=== PATIENT | male | born 1985 | race Caucasian/White ===

== ENCOUNTER → 2017-05-15 | Outpatient (REF) | payer BC ==
[2017-05-15 15:44] LABS: CHLAMYDIA DNA AMPLIFICATION NEGATIVE (NEGATIVE); GC DNA AMPLIFICATION NEGATIVE (NEGATIVE)
== END ==
LOC: M LAB REF 13:13
DX: Z11.3 Encounter for screening for infections with a predominantly sexual mode of transmission (principal)
CPT/HCPCS: 87591

== ENCOUNTER → 2017-05-21 | Outpatient (CLI) | payer BC ==
[2017-05-21 13:43] LABS: HIV 1&2 SCREEN CENTAUR NEGATIVE (NEGATIVE)
[2017-05-23 00:06] LABS: HSV-1 DNA Negative (Negative); HSV-2 DNA Negative (Negative)
== END ==
LOC: M LAB 11:36
DX: Z11.3 Encounter for screening for infections with a predominantly sexual mode of transmission (principal)
CPT/HCPCS: 87529

== ENCOUNTER 2019-03-21 14:51 | Emergency (ER) | payer BC ==
[~2019-03-21] VITALS: Ht 170.2 cm; Wt 83.6 kg
[2019-03-21] MEDS ORDERED: NS 1,000 ML IV ONE (15:30)
[2019-03-21 15:33] LABS: VENOUS BASE EXCESS -8.9 (-2.0-2.0); VENOUS HCO3 16.6 MEQ/L (23.0-27.0); VENOUS O2 SATURATION 97.8 % (60.0-80.0); VENOUS PARTIAL PRESSURE O2 105.8 mmHg (30.0-50.0); VENOUS PH 7.293 UNITS (7.330-7.430); VENOUS STANDARD HCO3 17.5 MEQ/L; VENOUS TOTAL CO2 17.6 MEQ/L (24.0-28.0)
[2019-03-21 15:44] LABS: BASO % 0.5 % (0.0-1.0); EOS % 0.2 % (0.0-3.0); HEMATOCRIT 45.5 % (42.0-52.0); HEMOGLOBIN 15.1 g/dl (13.5-17.5); LYMPH # 1.6 10^3/uL (1.5-5.0); LYMPH % 19.1 % (24.0-44.0); MEAN CORPUSCULAR HEMOGLOBIN 27.5 pg (27.0-33.0); MEAN CORPUSCULAR HGB CONC 33.2 g/dl (32.0-36.5); MEAN CORPUSCULAR VOLUME 82.9 fl (80.0-96.0); MONO # 0.6 10^3/uL (0.0-0.8); MONO % 7.2 % (0.0-5.0); NEUTROPHILS # 5.9 10^3/uL (1.5-8.5); NEUTROPHILS % 72.6 % (36.0-66.0); PLATELET COUNT, AUTOMATED 261 10^3/uL (150-450); RED BLOOD COUNT 5.49 10^6/uL (4.30-6.10); WHITE BLOOD COUNT 8.2 10^3/uL (4.0-10.0)
--- NOTE | 2019-03-21 15:49 | REPVR ---
PROCEDURE INFORMATION: Exam: CT Head Without Contrast Exam date and time: 03/21/2019 3:29 PM Age: 33 years old Clinical indication: Altered mental status/memory loss; Confusion or disorientation TECHNIQUE: Imaging protocol: Computed tomography of the head without contrast. Radiation optimization: All CT scans at this facility use at least one of these dose optimization techniques: automated exposure control; mA and/or kV adjustment per patient size (includes targeted exams where dose is matched to clinical indication); or iterative reconstruction. Other technique: STROKE PROTOCOL was implemented. COMPARISON: No relevant prior studies available. FINDINGS: Brain: There is edema involving the right posterior frontal, right parietal and right temporal lobes, with loss of the normal lo/white matter delineation there no associated hemorrhage. There is mass effect, with approximately 2 mm [id number] midline shift. Ventricles: Normal. No ventriculomegaly. Bones/joints: Unremarkable. No acute fracture. Sinuses: Visualized sinuses are unremarkable. No fluid levels. Mastoid air cells: Visualized mastoid air cells are well aerated. Soft tissues: Unremarkable. IMPRESSION: Diffuse edema corresponding to portions of the right middle cerebral artery distribution, potentially worrisome for infarction. Neoplasm is difficult to exclude. Contrast-enhanced MRI is recommended. ASSESSMENT: ASPECTS ([place] Stroke Program Early CT Score) is 6. These findings were discussed with IESHA COATS at 3:50 PM EST. Electronically signed by: Cordelia Oneal On 03/21/2019 15:50:51 PM
[2019-03-21 16:11] LABS: ACETAMINOPHEN LEVEL < 2.0 UG/ML (10.0-30.0); ALBUMIN 4.6 GM/DL (3.2-5.2); ALT/SGPT 26 U/L (12-78); BILIRUBIN,DIRECT 0.2 MG/DL (0.0-0.2); BILIRUBIN,TOTAL 0.7 MG/DL (0.2-1.0); BLOOD UREA NITROGEN 13 MG/DL (7-18); CALCIUM LEVEL 9.3 MG/DL (8.5-10.1); CARBON DIOXIDE LEVEL 19 MEQ/L (21-32); CHLORIDE LEVEL 105 MEQ/L (98-107); CK-MB VALUE MASS 1.8 NG/ML (<3.6); CPK CREATINE PHOSPHOKINASE 192 U/L (39-308); CREATININE FOR GFR 1.32 MG/DL (0.70-1.30); ETHYL ALCOHOL (ETHANOL) < 0.003 % (0.000-0.010); GLOMERULAR FILTRATION RATE > 60.0 (>60); GLUCOSE, FASTING 125 MG/DL (70-100); MB/CK RELATIVE INDEX 0.94 (< OR =4); SALICYLATE LEVEL < 1.7 MG/DL (5.0-30.0); SODIUM LEVEL 138 MEQ/L (136-145); TOTAL PROTEIN 7.7 GM/DL (6.4-8.2); TROPONIN I < 0.02 NG/ML (< 0.10)
[2019-03-21] MEDS ORDERED: PROHANCE 279.3MG/ML 15ML VIAL (A9576) As Ordered ONE (16:24)
[2019-03-21] MEDS ORDERED: levETIRAcetam INJection 1,000 MG in D5W 100 ML IV ONE (16:30)
[2019-03-21] MEDS ORDERED: dexameTHASONE 20 MG/5 ML VIAL (J1100) IV ONE (16:30)
--- NOTE | 2019-03-21 16:32 | REP ---
CHEST, SINGLE VIEW There is no evidence of acute infiltrate. No pleural effusion is seen. The heart is normal in size. The mediastinal silhouette is unremarkable. The visualized osseous structures are intact. IMPRESSION: No acute pulmonary disease. Electronically Signed by Mckay Blake MD 03/21/2019 05:30 P
--- NOTE | 2019-03-21 17:33 | REPVR ---
PROCEDURE INFORMATION: Exam: MR Head Without and With Contrast Exam date and time: 03/21/2019 5:02 PM Age: 33 years old Clinical indication: Abnormal findings; Abnormal radiologic findings of head/skull; Intracranial mass / space-occupying lesion; Syncope and collapse; Patient HX: R/O mass vs CVA, f/u to CT on pacs TECHNIQUE: Imaging protocol: MR of the head without and with intravenous contrast. Contrast material: PROHANCE; Contrast volume: 16 ml; Contrast route: 20G ANGIO; COMPARISON: CT Head without contrast 03/21/2019 3:27 PM FINDINGS: Brain: On the diffusion-weighted sequence there is 1 focal region of restricted diffusion in the region the right external capsule. There is mildly restricted diffusion in the right frontal and temporal lobes and within the left insular cortex and possibly within the hippocampi as well. There is diffuse edema left frontal and temporal lobes involving the white matter and overlying cortex. In the region of diffusion restriction there is enhancement with gadolinium administration. Due to the edema there is mass effect on the right lateral ventral gall without obstructive hydrocephalus. On the T2 weighted sequence there is also mild increased intensity in the left temporal cortex and edema within the white matter. Both hippocampi are are hyperintense on the FLAIR sequence. There is no acute intracranial hemorrhage. Ventricles: See Brain Finding. Bones/joints: Unremarkable. Soft tissues: Unremarkable. Sinuses: Normal as visualized. No acute sinusitis. Mastoid air cells: Normal as visualized. No mastoid effusion. Orbits: Unremarkable. 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 Other types of encephalitis are within the differential. A diffuse infiltrative tumor is a less likely etiology. Electronically signed by: Rachel Gore On 03/21/2019 17:35:10 PM
--- NOTE | 2019-03-21 17:35 | REPVR ---
PROCEDURE INFORMATION: Exam: MR Angiogram Head Without Contrast, Arteries Exam date and time: 03/21/2019 5:02 PM Age: 33 years old Clinical indication: Abnormal findings; Abnormal CT of the head; Syncope and collapse; Patient HX: R/O mass vs CVA; Additional info: Sz mass vs infarct TECHNIQUE: Imaging protocol: MR angiogram head without contrast. Exam focused on the arteries. 3D rendering: MIP and/or 3D reconstructed images were created by the technologist. COMPARISON: CT Head without contrast 03/21/2019 3:27 PM FINDINGS: Right internal carotid artery: Unremarkable. Intracranial segment is patent with no significant stenosis. No aneurysm. Right anterior cerebral artery: Unremarkable. No occlusion or significant stenosis. No aneurysm. Right middle cerebral artery: Unremarkable. No occlusion or significant stenosis. No aneurysm. Right posterior cerebral artery: Unremarkable. No occlusion or significant stenosis. No aneurysm. Right vertebral artery: Unremarkable. No occlusion or significant stenosis. No aneurysm. Left internal carotid artery: Unremarkable. Intracranial segment is patent with no significant stenosis. No aneurysm. Left anterior cerebral artery: Unremarkable. No occlusion or significant stenosis. No aneurysm. Left middle cerebral artery: Unremarkable. No occlusion or significant stenosis. No aneurysm. Left posterior cerebral artery: Unremarkable. No occlusion or significant stenosis. No aneurysm. Left vertebral artery: Unremarkable. No occlusion or significant stenosis. No aneurysm. Basilar artery: Unremarkable. No occlusion or significant stenosis. No aneurysm. IMPRESSION: No acute findings. Electronically signed by: Rachel Gore On 03/21/2019 17:36:27 PM
[2019-03-21 17:51] LABS: INR 1.17; PROTHROMBIN TIME 14.7 SECONDS (11.8-14.0)
[2019-03-21] MEDS ORDERED: ACYCLOVIR IV ONE (18:30)
[2019-03-21] MEDS ORDERED: NS IV ONE (18:30)
[2019-03-21 20:00] VITALS: BP 127/61
--- NOTE | 2019-03-22 21:28 | ECGEPIP ---
[facility] - ED Test Date: 2019-03-21 Pat Name: JULIO LABOY Department: Room: - Gender: Male Sterile Proc Tech: JUAN JOSE : 1985 Requested By: WILLIAM Rose Order Number: [id number] Reading MD: Mikey Reynolds Measurements Intervals [place] Rate: 108 P: ND: 0 QRS: 27 QRSD: 102 T: 19 QT: 318 QTc: 428 Interpretive Statements SINUS TACHYCARDIA NO PRIORS FOR COMPARISON Electronically Signed on 03-22-2019 21:28:13 EST by Mikey Reynolds
== END 2019-03-21 20:32 | disposition short-term general hospital (02) ==
LOC: M ED 14:51
DX: R00.0 Tachycardia, unspecified (principal); R56.9 Unspecified convulsions; G93.40 Encephalopathy, unspecified; R93.0 Abnormal findings on diagnostic imaging of skull and head, not elsewhere classified
CPT/HCPCS: 36415; 70450; 70544; 70553; 71045; 80048; 80076; 82550; 82553; 82803; 83605; 84443; 84484; 85025; 85610; 93005; 93041; 96374; 96375; 99285; A9576; G0480; J0133; J1100; J1953

== ENCOUNTER → 2019-04-08 | Outpatient (CLI) | payer BC ==
--- NOTE | 2019-04-08 12:00 | REP ---
Clinical: Brain lesion . Comparison: 03/21/2019 . Findings: The patient is status post right frontotemporal craniotomy. Underlying postsurgical changes include elements of pneumocephalus, edema, and small amount of suspected hemorrhage. There is evidence for associated mass effect with moderate compression to the right lateral ventricle and approximately 7.5 mm of contralateral midline shift. Remainder of the examination appears relatively normal. Impression: Postoperative changes. Electronically Signed by Lisandro Farmer MD 04/08/2019 11:52 A
== END ==
LOC: M RAD 11:33
PROVIDERS: ATTEND Physician Assistant Medical
DX: G93.6 Cerebral edema (principal); G93.89 Other specified disorders of brain; Z98.890 Other specified postprocedural states

== ENCOUNTER → 2019-05-01 | Outpatient (CLI) | payer BC ==
[~2019-05-01] MED LIST: DECA4TAB PO; KEPP10002 PO; PANT40TA3 PO
--- NOTE | 2019-05-02 08:09 | RADONC ---
RADIATION ONCOLOGY CONSULTATION NOTE: DATE: 05/01/2019 CHART NUMBER: [id number] DIAGNOSIS: High-grade astrocytoma STAGE: III ECOG PERFORMANCE STATUS: 0 Mr. Cuevas is a very pleasant 34-year-old white male with the diagnosis of a anoplastic astrocytoma who is presenting to us status post subtotal resection for consideration of postoperative radiation therapy in attempt to increase the likelihood of achieving local control. HISTORY OF PRESENT ILLNESS: The patient was in his usual state of health until late February 2019 when he had a seizure while at work. A CT scan of the head was done on 03/21/2019 and revealed diffuse edema corresponding to portions of the right middle cerebellar artery distribution. Neoplasm could not be excluded. An MRI of the brain was done the same day and revealed with that time what was thought to be herpes encephalitis. Apparently, the patient was transferred to [place] and on 04/03/2019 a subtotal resection was undertaken with pathology revealing a high-grade astrocytoma. 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 He has done well since surgery and is now presenting to us for discussion of postoperative radiation therapy. ALLERGIES: NO KNOWN DRUG ALLERGIES. PAST MEDICAL HISTORY: The patient's past medical history is noncontributory. He has been in generally excellent health. SOCIAL HISTORY: The patient reports that he did smoke approximately one pack of cigarettes per day for 15 years. He quit in April. He drinks alcohol socially. FAMILY HISTORY: The patient's family history is negative for brain tumors or other malignancies. REVIEW OF SYSTEMS: The patient's review of systems is basically the noncontributory. Since he has been on steroids. He has gained 10 pounds. He reports difficulty with sleeping. He has a lot of energy, of course this has improved with his Decadron taper. He is presently on 2 mg of Decadron a day. His review of systems is otherwise noncontributory. He denies nausea, vomiting, fevers, chills, night sweats, diplopia, headaches, anxiety or depression, anorexia, weight loss, visual disturbances, chest pain, urinary or bowel difficulties, bone pain, or neurological problems. PHYSICAL EXAMINATION: The patient is a well-developed, well-nourished 34-year-old white male in no acute distress. HEENT: Exam is normocephalic, atraumatic. Extraocular movements are intact. There is a well-healed surgical scar present over right frontotemporal region. There is no palpable cervical, supraclavicular, infraclavicular or axillary lymphadenopathy present. His lungs are clear to auscultation and percussion. His heart has regular rate and rhythm. His abdomen is benign with no splenomegaly, masses or tenderness. Skeletal examination reveals no tenderness to pressure percussion of the bony skeleton. Extremities: Reveal no clubbing, cyanosis or edema. Neurologic: Exam is grossly intact to sensory and motor. MEDICAL NECESSITY: IMRT/IGRT is clinically indicated for the highly conformal dose planning required. The target volume is in close proximity to critical structures, such as the normal brain, brainstem, eyes, optic nerves, spinal cord. The volume of interest must be covered with narrow margins to adequately protect immediately adjacent structures. The plan requires interpretation of complex testing such as CT localization. As noted above, special planning (IMRT) and localizing (IGRT) is required and essential to maximally protect sensitive normal tissue structures which cannot be accomplished using conventional 3-dimensional planning. ASSESSMENT: Clearly the patient is a candidate for this treatment and I have so informed him. I have discussed with the patient in detail the potential benefits as well as possible acute and chronic sequelae of external beam radiation therapy. We have discussed logistics of treatment planning, simulation and subsequent fractionated daily radiation treatments. I have scheduled the patient for the next available simulation slot and radiation treatments will begin subsequently. Thank you for allowing us to participate in the care of this very pleasant gentleman. I will keep you informed with any new developments as they occur. At the present time the patient is maintaining his 2 mg of Decadron a day which may help with any difficulties throughout the course of treatment. He will also be beginning his Temodar. cc: MD Milton Bassett MD Brittany Simone, DO Karen Williams, MD
== END ==
LOC: M ONCR 08:56
PROVIDERS: ATTEND Radiology Radiation Oncology
DX: C71.9 Malignant neoplasm of brain, unspecified (principal)

== ENCOUNTER → 2019-05-20 | Outpatient (RCR) | payer BC ==
--- NOTE | 2019-05-08 07:27 | RADONC ---
RADIATION ONCOLOGY DATE: 05/07/2019 CHART NUMBER: [id number] DIAGNOSIS: High-grade astrocytoma. STAGE: III. ECOG PERFORMANCE STATUS: 0 Mr. Cuevas returns today for simulation for his known high-grade astrocytoma. An immobilization device was constructed for day-to-day treatments. The immobilization device construction went without any problems or discomfort for the patient. Thereafter, 3 mm images were taken through the brain area for future contouring and treatment planning. The patient tolerated the imaging quite well with no significant untoward side effects or complaints. I was present during the entire simulation process. The patient now will undergo treatment planning via dosimetry and physics and will undergo initiation of his radiotherapy after completion of the treatment planning process.
--- NOTE | 2019-05-19 14:40 | RADONC ---
RADIATION ONCOLOGY PROGRESS NOTE DATE: 05/19/2019 CHART NUMBER: [id number] PROGRESS NOTE: Mr. Cuevas is presently at a dose of 540 cGy to his brain and overall had been tolerating treatments quite well. I spoke with the patient this morning and after jogging he reported that he was beginning to have all the symptoms he had prior to his original seizure. He reported some fuzziness of the brain as well as tingling in his extremities. The patient has been on a Decadron taper and has been down to 2 mg of Decadron a day. I have asked the patient to take a second 2 mg pill this morning bringing it to 4 mg this morning and then going to take another one tonight for 6 mg today. He will then be taking 2 mg b.i.d. from now on for 4 mg a day. We will continue to follow him and see if this helps. In the meantime, radiation will continue as scheduled.
[~2019-05-20] MED LIST changes: +DEXA4TA PO
== END ==
LOC: M ONCR 05-07 14:01
PROVIDERS: ATTEND Radiology Radiation Oncology
DX: C71.2 Malignant neoplasm of temporal lobe (principal)

== ENCOUNTER → 2019-05-21 | Outpatient (CLI) | payer BC ==
[~2019-05-21] MED LIST changes: +ISOVUE-370 76% 100ML VIAL (Q9967) As Ordered ONE
--- NOTE | 2019-05-21 07:59 | REPVR ---
PROCEDURE INFORMATION: Exam: CT Head Without Contrast Exam date and time: 05/21/2019 7:32 AM Age: 34 years old Clinical indication: Condition or disease; Primary brain cancer; Prior surgery; Surgery date: 1-6 months; Additional info: S/P brain tumor resection, lt side numbness TECHNIQUE: Imaging protocol: Computed tomography of the head without contrast. Radiation optimization: All CT scans at this facility use at least one of these dose optimization techniques: automated exposure control; mA and/or kV adjustment per patient size (includes targeted exams where dose is matched to clinical indication); or iterative reconstruction. COMPARISON: CT HEAD W/O CONTRAST - OUTSIDE PRIOR 04/08/2019 11:48 AM FINDINGS: Redemonstrated is a right temporal craniotomy defect. Small hyperdensity below the craniotomy defect is subdural space likely consistent with dural thickening. Trace amount of residual postsurgical subdural hemorrhage is considered less likely. There is a large area of encephalomalacia within the left temporal lobe with abnormal low attenuation in the more superior right temporal lobe extending into the frontal lobe which may represent postsurgical change versus vasogenic edema. No other intracranial hemorrhage. No significant mass effect or midline shift. Ventricles are nondilated for age. No other focal parenchymal abnormalities. No other calvarial abnormalities. IMPRESSION: Postsurgical changes with right temporal craniotomy and encephalomalacia changes in the right temporal lobe. Mildly decreased attenuation in the right frontal temporal region may represent postsurgical change versus vasogenic edema. This is similar to previous examination. No definite acute intracranial hemorrhage. No mass effect or midline shift. Electronically signed by: Trenton Fowler On 05/21/2019 07:59:34 AM
--- NOTE | 2019-05-21 08:01 | REPVR ---
PROCEDURE INFORMATION: Exam: CT Angiography Head With Contrast Exam date and time: 05/21/2019 7:32 AM Age: 34 years old Clinical indication: Condition or disease; Cancer; Other: Brain; Prior surgery; Surgery date: 1-6 months; Additional info: S/P brain tumor resection, lt side numbness TECHNIQUE: Imaging protocol: Computed tomography angiography of the head with intravenous contrast. 3D rendering: MIP and/or 3D reconstructed images were created by the technologist. Radiation optimization: All CT scans at this facility use at least one of these dose optimization techniques: automated exposure control; mA and/or kV adjustment per patient size (includes targeted exams where dose is matched to clinical indication); or iterative reconstruction. Contrast material: ISOVUE 370; Contrast volume: 75 ml; Contrast route: IV; COMPARISON: CT HEAD W/O CONTRAST - OUTSIDE PRIOR 04/08/2019 11:48 AM FINDINGS: No significant stenosis, aneurysmal dilatation or large vessel occlusion within the anterior or posterior intracranial arterial circulation. Postsurgical changes over the right frontal temporal region. Please see dedicated CT brain reported separately. IMPRESSION: No significant stenosis, aneurysmal dilatation or large vessel occlusion within the anterior or posterior intracranial arterial circulation. Electronically signed by: Trenton Fowler On 05/21/2019 08:01:27 AM
== END ==
LOC: M RAD 07:15
PROVIDERS: ATTEND Physician Assistant Medical
DX: C71.9 Malignant neoplasm of brain, unspecified (principal); R20.0 Anesthesia of skin; Z98.890 Other specified postprocedural states
CPT/HCPCS: 70450; 70496; Q9967

== ENCOUNTER → 2019-05-26 | Outpatient (CLI) | payer BC ==
[~2019-05-26] MED LIST changes: -ISOVUE-370 76% 100ML VIAL (Q9967) As Ordered ONE
== END ==
LOC: M ONCM 13:40
PROVIDERS: ATTEND Internal Medicine Medical Oncology
DX: C71.9 Malignant neoplasm of brain, unspecified (principal)

== ENCOUNTER → 2019-05-26 | Outpatient (REF) | payer BC ==
[2019-05-26 16:17] LABS: BLOOD UREA NITROGEN 18 MG/DL (7-18); CALCIUM LEVEL 9.2 MG/DL (8.5-10.1); CARBON DIOXIDE LEVEL 27 MEQ/L (21-32); CHLORIDE LEVEL 107 MEQ/L (98-107); CREATININE FOR GFR 0.85 MG/DL (0.70-1.30); GLOMERULAR FILTRATION RATE > 60.0 (>60); GLUCOSE, FASTING 96 MG/DL (70-100); POTASSIUM SERUM 3.9 MEQ/L (3.5-5.1); SODIUM LEVEL 138 MEQ/L (136-145)
== END ==
LOC: M LAB REF 14:56
PROVIDERS: ATTEND Internal Medicine Medical Oncology
DX: C71.9 Malignant neoplasm of brain, unspecified (principal)

== ENCOUNTER → 2019-06-05 | Outpatient (REF) | payer BC ==
[2019-06-05 15:20] LABS: BASO % 0.1 % (0.0-1.0); EOS % 0.1 % (0.0-3.0); HEMATOCRIT 44.9 % (42.0-52.0); HEMOGLOBIN 15.3 g/dl (13.5-17.5); LYMPH # 0.7 10^3/uL (1.5-5.0); LYMPH % 7.2 % (24.0-44.0); MEAN CORPUSCULAR HEMOGLOBIN 29.9 pg (27.0-33.0); MEAN CORPUSCULAR HGB CONC 34.1 g/dl (32.0-36.5); MEAN CORPUSCULAR VOLUME 87.9 fl (80.0-96.0); MONO # 0.6 10^3/uL (0.0-0.8); MONO % 6.2 % (0.0-5.0); NEUTROPHILS # 7.8 10^3/uL (1.5-8.5); NEUTROPHILS % 85.7 % (36.0-66.0); PLATELET COUNT, AUTOMATED 250 10^3/uL (150-450); RED BLOOD COUNT 5.11 10^6/uL (4.30-6.10); WHITE BLOOD COUNT 9.1 10^3/uL (4.0-10.0)
[2019-06-05 15:38] LABS: ALBUMIN 3.6 GM/DL (3.2-5.2); ALT/SGPT 30 U/L (12-78); BILIRUBIN,TOTAL 0.4 MG/DL (0.2-1.0); BLOOD UREA NITROGEN 17 MG/DL (7-18); CALCIUM LEVEL 9.3 MG/DL (8.5-10.1); CARBON DIOXIDE LEVEL 28 MEQ/L (21-32); CHLORIDE LEVEL 105 MEQ/L (98-107); CREATININE FOR GFR 0.85 MG/DL (0.70-1.30); GLOMERULAR FILTRATION RATE > 60.0 (>60); GLUCOSE, FASTING 96 MG/DL (70-100); SODIUM LEVEL 136 MEQ/L (136-145)
== END ==
LOC: M LAB REF 14:49
DX: C71.9 Malignant neoplasm of brain, unspecified (principal)

== ENCOUNTER → 2019-06-12 | Outpatient (CLI) | payer BC ==
[2019-06-12 14:17] LABS: BASO % 0.2 % (0.0-1.0); EOS % 0.1 % (0.0-3.0); HEMATOCRIT 45.1 % (42.0-52.0); HEMOGLOBIN 16.1 g/dl (13.5-17.5); LYMPH # 0.5 10^3/uL (1.5-5.0); LYMPH % 5.6 % (24.0-44.0); MEAN CORPUSCULAR HEMOGLOBIN 30.7 pg (27.0-33.0); MEAN CORPUSCULAR HGB CONC 35.7 g/dl (32.0-36.5); MEAN CORPUSCULAR VOLUME 86.1 fl (80.0-96.0); MONO # 0.3 10^3/uL (0.0-0.8); MONO % 3.2 % (0.0-5.0); NEUTROPHILS # 7.5 10^3/uL (1.5-8.5); NEUTROPHILS % 89.7 % (36.0-66.0); PLATELET COUNT, AUTOMATED 258 10^3/uL (150-450); RED BLOOD COUNT 5.24 10^6/uL (4.30-6.10); WHITE BLOOD COUNT 8.3 10^3/uL (4.0-10.0)
[2019-06-12 14:23] LABS: BLOOD UREA NITROGEN 20 MG/DL (7-18); CALCIUM LEVEL 9.1 MG/DL (8.5-10.1); CARBON DIOXIDE LEVEL 26 MEQ/L (21-32); CHLORIDE LEVEL 104 MEQ/L (98-107); GLOMERULAR FILTRATION RATE > 60.0 (>60); GLUCOSE, FASTING 107 MG/DL (70-100); POTASSIUM SERUM 3.6 MEQ/L (3.5-5.1); SODIUM LEVEL 135 MEQ/L (136-145)
== END ==
LOC: M LAB 13:38
PROVIDERS: ATTEND Internal Medicine Medical Oncology
DX: C71.9 Malignant neoplasm of brain, unspecified (principal)

== ENCOUNTER → 2019-06-19 | Outpatient (CLI) | payer BC ==
[2019-06-19 14:07] LABS: BASO % 0.3 % (0.0-1.0); EOS % 0.3 % (0.0-3.0); HEMATOCRIT 45.6 % (42.0-52.0); HEMOGLOBIN 15.8 g/dl (13.5-17.5); LYMPH # 0.6 10^3/uL (1.5-5.0); LYMPH % 7.1 % (24.0-44.0); MEAN CORPUSCULAR HEMOGLOBIN 30.1 pg (27.0-33.0); MEAN CORPUSCULAR HGB CONC 34.6 g/dl (32.0-36.5); MEAN CORPUSCULAR VOLUME 86.9 fl (80.0-96.0); MONO # 0.3 10^3/uL (0.0-0.8); MONO % 4.3 % (0.0-5.0); NEUTROPHILS # 6.8 10^3/uL (1.5-8.5); NEUTROPHILS % 87.5 % (36.0-66.0); PLATELET COUNT, AUTOMATED 259 10^3/uL (150-450); RED BLOOD COUNT 5.25 10^6/uL (4.30-6.10); WHITE BLOOD COUNT 7.7 10^3/uL (4.0-10.0)
[2019-06-19 14:30] LABS: BLOOD UREA NITROGEN 23 MG/DL (7-18); CARBON DIOXIDE LEVEL 25 MEQ/L (21-32); CHLORIDE LEVEL 105 MEQ/L (98-107); CREATININE FOR GFR 0.87 MG/DL (0.70-1.30); GLOMERULAR FILTRATION RATE > 60.0 (>60); GLUCOSE, FASTING 123 MG/DL (70-100); POTASSIUM SERUM 3.5 MEQ/L (3.5-5.1); SODIUM LEVEL 136 MEQ/L (136-145)
== END ==
LOC: M LAB 13:38
PROVIDERS: ATTEND Internal Medicine Medical Oncology
DX: C71.9 Malignant neoplasm of brain, unspecified (principal)

== ENCOUNTER → 2019-06-19 | Outpatient (RCR) | payer BC ==
--- NOTE | 2019-05-27 08:36 | RADONC ---
RADIATION ONCOLOGY PROGRESS NOTE DATE: 05/26/2019 CHART #: [id number] Mr. Cuevas is presently at a dose of 1440 cGy to his brain tumor and is tolerating treatments quite well at this point with no complaints related to his radiation therapy. He had called his neurosurgeon who increased his Keppra. He is having no further seizure like or neurological issues. REVIEW OF SYSTEMS: The patient's review of systems is noncontributory. Denies nausea, vomiting, fevers, chills, night sweats, diplopia, headaches, anxiety or depression, anorexia, weight loss, visual disturbances, chest pain, urinary or bowel difficulties, bone pain, or neurological problems. PHYSICAL EXAMINATION: The patient's skin is in good condition with no evidence of moist or dry desquamation. The remainder of his physical exam remains unchanged. Mr. Cuevas is tolerating treatments quite well and radiation will continue as scheduled.
--- NOTE | 2019-06-02 15:05 | RADONC ---
RADIATION ONCOLOGY PROGRESS NOTE DATE: 06/02/2019 CHART NUMBER: [id number] PROGRESS NOTE: Mr. Cuevas is presently at a dose of 2340 cGy to his brain and is tolerating treatments quite well at this point with no significant difficulties related to his radiation therapy. He is having no headaches or nausea. REVIEW OF SYSTEMS: The patient's review of systems is noncontributory. Denies nausea, vomiting, fevers, chills, night sweats, diplopia, headaches, anxiety or depression, anorexia, weight loss, visual disturbances, chest pain, urinary or bowel difficulties, bone pain, or neurological problems. PHYSICAL EXAMINATION: The patient's skin is in good condition with no evidence of moist or dry desquamation. The remainder of his physical exam remains unchanged. Mr. Cuevas is tolerating treatments quite well and radiation will continue as scheduled.
--- NOTE | 2019-06-10 06:27 | RADONC ---
RADIATION ONCOLOGY PROGRESS NOTE DATE: 06/09/2019 CHART # [id number] Mr. Cuevas is presently at a dose of 3060 cGy to his brain tumor and is tolerating treatments quite well at this point with no significant difficulties related to his radiation therapy. He is having no significant headaches or problems. REVIEW OF SYSTEMS: The patient's review of systems is basically noncontributory. Denies nausea, vomiting, fevers, chills, night sweats, diplopia, headaches, anxiety or depression, anorexia, weight loss, visual disturbances, chest pain, urinary or bowel difficulties, bone pain, or neurological problems. PHYSICAL EXAMINATION: The patient's skin is in good condition with no evidence of moist or dry desquamation. The remainder of the physical exam remains unchanged. Mr. Cuevas is tolerating treatments quite well and radiation will continue as scheduled.
--- NOTE | 2019-06-17 08:56 | RADONC ---
RADIATION ONCOLOGY PROGRESS NOTE DATE OF SERVICE: 06/16/2019 CHART NUMBER: [id number]. PROGRESS NOTE: Mr. Cuevas is presently at a dose of 4140 cGy to his brain and is tolerating treatments quite well at this point with no complaints related to his radiation therapy. He is having no urinary or bowel difficulties and no bone pain. REVIEW OF SYSTEMS: The patient's review of systems is noncontributory. He denies nausea, vomiting, fevers, chills, night sweats, diplopia, headaches, anxiety or depression, anorexia, weight loss, visual disturbances, chest pain, urinary or bowel difficulties, bone pain, or neurological problems. PHYSICAL EXAMINATION: The patient's skin is in good condition with no evidence of radiation change present. There is no moist or dry desquamation. The remainder of his physical exam remains unchanged. Mr. Cuevas is tolerating treatments quite well, and radiation will continue as scheduled.
== END ==
LOC: M ONCR 05-21 14:04
PROVIDERS: ATTEND Radiology Radiation Oncology
DX: C71.2 Malignant neoplasm of temporal lobe (principal)

== ENCOUNTER → 2019-06-26 | Outpatient (CLI) | payer BC ==
[2019-06-26 14:02] LABS: BASO % 0.1 % (0.0-1.0); EOS % 0.1 % (0.0-3.0); HEMATOCRIT 45.2 % (42.0-52.0); HEMOGLOBIN 15.4 g/dl (13.5-17.5); LYMPH # 0.4 10^3/uL (1.5-5.0); LYMPH % 5.1 % (24.0-44.0); MEAN CORPUSCULAR HEMOGLOBIN 29.6 pg (27.0-33.0); MEAN CORPUSCULAR HGB CONC 34.1 g/dl (32.0-36.5); MEAN CORPUSCULAR VOLUME 86.9 fl (80.0-96.0); MONO # 0.4 10^3/uL (0.0-0.8); MONO % 4.4 % (0.0-5.0); NEUTROPHILS # 7.3 10^3/uL (1.5-8.5); NEUTROPHILS % 89.4 % (36.0-66.0); PLATELET COUNT, AUTOMATED 259 10^3/uL (150-450); WHITE BLOOD COUNT 8.2 10^3/uL (4.0-10.0)
[2019-06-26 14:28] LABS: BLOOD UREA NITROGEN 19 MG/DL (7-18); CALCIUM LEVEL 9.1 MG/DL (8.5-10.1); CARBON DIOXIDE LEVEL 24 MEQ/L (21-32); CHLORIDE LEVEL 107 MEQ/L (98-107); CREATININE FOR GFR 0.87 MG/DL (0.70-1.30); GLOMERULAR FILTRATION RATE > 60.0 (>60); GLUCOSE, FASTING 136 MG/DL (70-100); POTASSIUM SERUM 3.6 MEQ/L (3.5-5.1); SODIUM LEVEL 139 MEQ/L (136-145)
== END ==
LOC: M LAB 13:24
PROVIDERS: ATTEND Internal Medicine Medical Oncology
DX: C71.9 Malignant neoplasm of brain, unspecified (principal)

== ENCOUNTER 2019-06-30 13:45 | Outpatient (RCR) | payer BC ==
--- NOTE | 2019-06-26 09:18 | RADONC ---
RADIATION ONCOLOGY PROGRESS NOTE DATE: 06/23/2019 CHART NUMBER: [id number] PROGRESS NOTE: Mr. Cuevas is presently at a dose of 5040 cGy to his brain tumor and is tolerating treatments quite well at this point with no complaints related to his radiation therapy. He is having no difficulties or seizure-like activity. REVIEW OF SYSTEMS: The patient's review of systems is noncontributory. Denies nausea, vomiting, fevers, chills, night sweats, diplopia, headaches, anxiety or depression, anorexia, weight loss, visual disturbances, chest pain, urinary or bowel difficulties, bone pain, or neurological problems. PHYSICAL EXAMINATION: The patient's skin is in good condition with some radiation tanning present. The remainder of his physical exam is unchanged. Mr. Cuevas is tolerating treatments quite well and radiation will continue as scheduled.
--- NOTE | 2019-07-02 06:08 | RADONC ---
RADIATION ONCOLOGY TREATMENT SUMMARY DATE: 06/30/2019 CHART #: [id number] DIAGNOSIS: High grade astrocytoma. STAGE: Grade 3. ECOG PERFORMANCE STATUS: 0. TREATMENT SUMMARY: Mr. Cuevas is a very pleasant 34-year-old white male with the diagnosis of an anaplastic astrocytoma who presents to us status post sub total resection for consideration of postoperative radiation therapy via IMRT/IGRT in order to achieve local control. We treated the patient to his brain tumor for a total dose of 5940 cGy delivered in 33 fractions of 180 cGy each over 46 elapsed days from 05/15/2019 through 06/30/2019. The patient's brain was treated on a linear accelerator utilizing a 6 MV photon beam via IMRT/IGRT. Mr. Cuevas tolerated his treatments quite well and was able complete therapy as prescribed without interruption. I have scheduled the patient to see me again in 1 month for further followup. He will also continue to be followed by his other physicians as well. His Decadron taper schedule and Keppra are being organized and managed by his neurosurgeon. cc: MD Milton Bassett MD Brittany Simone, DO Karen Williams, MD
== END 2019-07-20 ==
LOC: M ONCR 13:45
PROVIDERS: ATTEND Radiology Radiation Oncology
DX: C71.2 Malignant neoplasm of temporal lobe (principal)

== ENCOUNTER → 2019-07-04 | Outpatient (CLI) | payer BC ==
[2019-07-04 13:49] LABS: BASO % 0.2 % (0.0-1.0); EOS % 0.1 % (0.0-3.0); HEMATOCRIT 46.5 % (42.0-52.0); HEMOGLOBIN 15.7 g/dl (13.5-17.5); LYMPH # 0.5 10^3/uL (1.5-5.0); LYMPH % 5.6 % (24.0-44.0); MEAN CORPUSCULAR HEMOGLOBIN 29.7 pg (27.0-33.0); MEAN CORPUSCULAR HGB CONC 33.8 g/dl (32.0-36.5); MEAN CORPUSCULAR VOLUME 88.1 fl (80.0-96.0); MONO % 4.3 % (0.0-5.0); NEUTROPHILS # 7.8 10^3/uL (1.5-8.5); NEUTROPHILS % 88.8 % (36.0-66.0); PLATELET COUNT, AUTOMATED 262 10^3/uL (150-450); RED BLOOD COUNT 5.28 10^6/uL (4.30-6.10); WHITE BLOOD COUNT 8.8 10^3/uL (4.0-10.0)
[2019-07-04 13:50] LABS: MONO # 0.4 10^3/uL (0.0-0.8)
[2019-07-04 14:11] LABS: BLOOD UREA NITROGEN 19 MG/DL (7-18); CALCIUM LEVEL 8.9 MG/DL (8.5-10.1); CARBON DIOXIDE LEVEL 30 MEQ/L (21-32); CHLORIDE LEVEL 105 MEQ/L (98-107); CREATININE FOR GFR 0.84 MG/DL (0.70-1.30); GLOMERULAR FILTRATION RATE > 60.0 (>60); GLUCOSE, FASTING 103 MG/DL (70-100); POTASSIUM SERUM 4.1 MEQ/L (3.5-5.1); SODIUM LEVEL 141 MEQ/L (136-145)
== END ==
LOC: M LAB 13:02
PROVIDERS: ATTEND Internal Medicine Medical Oncology
DX: C71.9 Malignant neoplasm of brain, unspecified (principal)

== ENCOUNTER → 2019-07-15 | Outpatient (CLI) | payer BC ==
[2019-07-15 13:53] LABS: BASO % 0.2 % (0.0-1.0); HEMATOCRIT 42.6 % (42.0-52.0); LYMPH # 0.5 10^3/uL (1.5-5.0); LYMPH % 5.9 % (24.0-44.0); MEAN CORPUSCULAR HEMOGLOBIN 30.2 pg (27.0-33.0); MEAN CORPUSCULAR HGB CONC 35.2 g/dl (32.0-36.5); MEAN CORPUSCULAR VOLUME 85.7 fl (80.0-96.0); MONO # 0.4 10^3/uL (0.0-0.8); MONO % 4.3 % (0.0-5.0); NEUTROPHILS # 7.5 10^3/uL (1.5-8.5); NEUTROPHILS % 88.8 % (36.0-66.0); PLATELET COUNT, AUTOMATED 214 10^3/uL (150-450); RED BLOOD COUNT 4.97 10^6/uL (4.30-6.10); WHITE BLOOD COUNT 8.4 10^3/uL (4.0-10.0)
[2019-07-15 14:13] LABS: BLOOD UREA NITROGEN 20 MG/DL (7-18); CALCIUM LEVEL 8.8 MG/DL (8.5-10.1); CARBON DIOXIDE LEVEL 25 MEQ/L (21-32); CHLORIDE LEVEL 108 MEQ/L (98-107); CREATININE FOR GFR 0.81 MG/DL (0.70-1.30); GLOMERULAR FILTRATION RATE > 60.0 (>60); GLUCOSE, FASTING 106 MG/DL (70-100); POTASSIUM SERUM 3.7 MEQ/L (3.5-5.1); SODIUM LEVEL 140 MEQ/L (136-145)
== END ==
LOC: M LAB 13:01
PROVIDERS: ATTEND Internal Medicine Medical Oncology
DX: C71.9 Malignant neoplasm of brain, unspecified (principal)

== ENCOUNTER → 2019-07-30 | Outpatient (CLI) | payer BC ==
[2019-07-30 12:12] LABS: BASO % 0.2 % (0.0-1.0); EOS % 0.2 % (0.0-3.0); HEMATOCRIT 44.2 % (42.0-52.0); HEMOGLOBIN 15.7 g/dl (13.5-17.5); LYMPH # 0.7 10^3/uL (1.5-5.0); LYMPH % 6.6 % (24.0-44.0); MEAN CORPUSCULAR HEMOGLOBIN 30.7 pg (27.0-33.0); MEAN CORPUSCULAR HGB CONC 35.5 g/dl (32.0-36.5); MEAN CORPUSCULAR VOLUME 86.5 fl (80.0-96.0); MONO # 0.5 10^3/uL (0.0-0.8); MONO % 5.3 % (0.0-5.0); NEUTROPHILS # 8.7 10^3/uL (1.5-8.5); NEUTROPHILS % 86.2 % (36.0-66.0); PLATELET COUNT, AUTOMATED 185 10^3/uL (150-450); RED BLOOD COUNT 5.11 10^6/uL (4.30-6.10); WHITE BLOOD COUNT 10.1 10^3/uL (4.0-10.0)
[2019-07-30 12:29] LABS: BLOOD UREA NITROGEN 15 MG/DL (7-18); CALCIUM LEVEL 9.2 MG/DL (8.5-10.1); CARBON DIOXIDE LEVEL 26 MEQ/L (21-32); CHLORIDE LEVEL 105 MEQ/L (98-107); CREATININE FOR GFR 0.87 MG/DL (0.70-1.30); GLOMERULAR FILTRATION RATE > 60.0 (>60); GLUCOSE, FASTING 101 MG/DL (70-100); POTASSIUM SERUM 3.8 MEQ/L (3.5-5.1); SODIUM LEVEL 136 MEQ/L (136-145)
== END ==
LOC: M LAB 11:41
PROVIDERS: ATTEND Internal Medicine Medical Oncology
DX: C71.9 Malignant neoplasm of brain, unspecified (principal)

== ENCOUNTER → 2019-07-30 | Outpatient (CLI) | payer BC ==
--- NOTE | 2019-08-05 13:04 | RADONC ---
RADIATION ONCOLOGY FOLLOWUP NOTE DATE OF SERVICE: 07/30/2019 This is a telemedicine visit. The patient was informed of the risks including security breech, technological failure, inability to perform a comprehensive physical exam which could delay or prevent an accurate diagnosis, and potential complications from treatment decisions rendered over a telemedicine platform. The patient understands and consented to the use of telehealth services. Phone only. CHART NUMBER: [id number]. DIAGNOSIS: High-grade astrocytoma/glioblastoma. GRADE: 3/4. ECOG PERFORMANCE STATUS: 0. FOLLOWUP NOTE: Mr. Cuevas is a very pleasant 34-year-old white male with the diagnosis of a glioblastoma multiforme/anaplastic astrocytoma, who is presenting to us today for routine followup visit 1 month post completion of external beam radiation therapy. The patient reports that he was initially diagnosed as a high-grade astrocytoma grade 3 but now says his physicians in [place] are telling him it was a glioblastoma. Nonetheless, we treated him to a dose 5940 cGy and covered all bases. The patient is presenting reporting that he is doing quite well. He is having no headaches or other problems. He has no seizure-like activity. He is presently receiving systemic therapy with Dr. Milton Javier MD. PHYSICAL EXAMINATION: Was deferred at this time due to COVID precautions. This is a telephone consultation. ASSESSMENT: Mr. Cuevas is doing quite well at this point. He is continuing with his systemic therapy. I have scheduled him for a followup in our office in 3 months' time, and he has been informed that I will be retiring and he will be seeing our new doctor, Dr. Jeancarlos Kohler. In the meantime, he will continue his close followup and management with his other physicians. cc: MD Milton Bassett MD Brittany Simone, DO Karen Williams, MD
== END ==
LOC: M ONCR 13:36
PROVIDERS: ATTEND Radiology Radiation Oncology
DX: C71.2 Malignant neoplasm of temporal lobe (principal)

== ENCOUNTER → 2019-08-06 | Outpatient (CLI) | payer BC ==
[~2019-08-06] MED LIST changes: +BACT800T5 PO; +DEXA2TA PO; +KEPP1TAB PO; +LAMI25TA PO; +MELA3TAB49 PO; +ONDA8TAB8 PO; +PANT40TA29 PO; -PANT40TA3 PO; +TEMO100C17 PO
[2019-08-06 14:58] LABS: BASO % 0.1 % (0.0-1.0); EOS % 0.1 % (0.0-3.0); HEMATOCRIT 43.1 % (42.0-52.0); HEMOGLOBIN 14.7 g/dl (13.5-17.5); LYMPH # 0.7 10^3/uL (1.5-5.0); LYMPH % 6.6 % (24.0-44.0); MEAN CORPUSCULAR HEMOGLOBIN 29.8 pg (27.0-33.0); MEAN CORPUSCULAR HGB CONC 34.1 g/dl (32.0-36.5); MEAN CORPUSCULAR VOLUME 87.4 fl (80.0-96.0); MONO # 0.6 10^3/uL (0.0-0.8); MONO % 5.9 % (0.0-5.0); NEUTROPHILS # 8.6 10^3/uL (1.5-8.5); NEUTROPHILS % 86.4 % (36.0-66.0); PLATELET COUNT, AUTOMATED 223 10^3/uL (150-450); RED BLOOD COUNT 4.93 10^6/uL (4.30-6.10); WHITE BLOOD COUNT 9.9 10^3/uL (4.0-10.0)
[2019-08-06 15:23] LABS: BLOOD UREA NITROGEN 17 MG/DL (7-18); CALCIUM LEVEL 8.6 MG/DL (8.5-10.1); CARBON DIOXIDE LEVEL 26 MEQ/L (21-32); CHLORIDE LEVEL 106 MEQ/L (98-107); CREATININE FOR GFR 0.89 MG/DL (0.70-1.30); GLOMERULAR FILTRATION RATE > 60.0 (>60); GLUCOSE, FASTING 111 MG/DL (70-100); POTASSIUM SERUM 3.9 MEQ/L (3.5-5.1); SODIUM LEVEL 139 MEQ/L (136-145)
== END ==
LOC: M LAB 14:26
PROVIDERS: ATTEND Internal Medicine Medical Oncology
DX: C71.9 Malignant neoplasm of brain, unspecified (principal)

== ENCOUNTER → 2019-08-11 | Outpatient (CLI) | payer BC ==
[~2019-08-11] MED LIST changes: -BACT800T5 PO; -DEXA2TA PO; -KEPP1TAB PO; -LAMI25TA PO; -MELA3TAB49 PO; -ONDA8TAB8 PO; -PANT40TA29 PO; +PANT40TA3 PO; -TEMO100C17 PO
[2019-08-11 07:01] LABS: BASO % 0.6 % (0.0-1.0); EOS # 0.1 10^3/uL (0.0-0.5); HEMATOCRIT 42.5 % (42.0-52.0); HEMOGLOBIN 14.4 g/dl (13.5-17.5); LYMPH # 1.7 10^3/uL (1.5-5.0); LYMPH % 24.8 % (24.0-44.0); MEAN CORPUSCULAR HEMOGLOBIN 29.6 pg (27.0-33.0); MEAN CORPUSCULAR HGB CONC 33.9 g/dl (32.0-36.5); MEAN CORPUSCULAR VOLUME 87.4 fl (80.0-96.0); MONO # 0.8 10^3/uL (0.0-0.8); MONO % 11.3 % (0.0-5.0); NEUTROPHILS # 4.1 10^3/uL (1.5-8.5); NEUTROPHILS % 61.4 % (36.0-66.0); PLATELET COUNT, AUTOMATED 195 10^3/uL (150-450); RED BLOOD COUNT 4.86 10^6/uL (4.30-6.10); WHITE BLOOD COUNT 6.7 10^3/uL (4.0-10.0)
[2019-08-11 07:20] LABS: BLOOD UREA NITROGEN 14 MG/DL (7-18); CALCIUM LEVEL 8.8 MG/DL (8.5-10.1); CARBON DIOXIDE LEVEL 28 MEQ/L (21-32); CHLORIDE LEVEL 105 MEQ/L (98-107); CREATININE FOR GFR 0.96 MG/DL (0.70-1.30); GLOMERULAR FILTRATION RATE > 60.0 (>60); GLUCOSE, FASTING 87 MG/DL (70-100); POTASSIUM SERUM 3.8 MEQ/L (3.5-5.1); SODIUM LEVEL 139 MEQ/L (136-145)
== END ==
LOC: M LAB 06:34
PROVIDERS: ATTEND Internal Medicine Medical Oncology
DX: C71.9 Malignant neoplasm of brain, unspecified (principal)

== ENCOUNTER → 2019-09-03 | Outpatient (CLI) | payer BC ==
[~2019-09-03] MED LIST changes: +BACT800T5 PO; +DEXA2TA PO; +KEPP1TAB PO; +LAMI25TA PO; +MELA3TAB49 PO; +ONDA8TAB8 PO; +PANT40TA29 PO; -PANT40TA3 PO; +TEMO1CAP PO
[2019-09-03 08:41] LABS: BASO % 0.6 % (0.0-1.0); EOS # 0.1 10^3/uL (0.0-0.5); EOS % 0.9 % (0.0-3.0); HEMATOCRIT 39.6 % (42.0-52.0); HEMOGLOBIN 13.8 g/dl (13.5-17.5); LYMPH # 1.2 10^3/uL (1.5-5.0); LYMPH % 17.5 % (24.0-44.0); MEAN CORPUSCULAR HEMOGLOBIN 30.3 pg (27.0-33.0); MEAN CORPUSCULAR HGB CONC 34.8 g/dl (32.0-36.5); MONO # 0.6 10^3/uL (0.0-0.8); NEUTROPHILS % 71.4 % (36.0-66.0); PLATELET COUNT, AUTOMATED 222 10^3/uL (150-450); RED BLOOD COUNT 4.55 10^6/uL (4.30-6.10)
[2019-09-03 09:05] LABS: BLOOD UREA NITROGEN 14 MG/DL (7-18); CALCIUM LEVEL 9.3 MG/DL (8.5-10.1); CARBON DIOXIDE LEVEL 25 MEQ/L (21-32); CHLORIDE LEVEL 108 MEQ/L (98-107); CREATININE FOR GFR 0.87 MG/DL (0.70-1.30); GLOMERULAR FILTRATION RATE > 60.0 (>60); GLUCOSE, FASTING 88 MG/DL (70-100); POTASSIUM SERUM 3.5 MEQ/L (3.5-5.1); SODIUM LEVEL 141 MEQ/L (136-145)
== END ==
LOC: M LAB 08:10
PROVIDERS: ATTEND Internal Medicine Medical Oncology
DX: C71.9 Malignant neoplasm of brain, unspecified (principal)

== ENCOUNTER → 2019-09-11 | Outpatient (CLI) | payer BC ==
[2019-09-11 08:06] LABS: BASO # 0.1 10^3/uL (0.0-0.2); BASO % 0.6 % (0.0-1.0); EOS # 0.1 10^3/uL (0.0-0.5); EOS % 1.2 % (0.0-3.0); HEMATOCRIT 42.5 % (42.0-52.0); HEMOGLOBIN 14.5 g/dl (13.5-17.5); LYMPH # 1.5 10^3/uL (1.5-5.0); LYMPH % 18.3 % (24.0-44.0); MEAN CORPUSCULAR HGB CONC 34.1 g/dl (32.0-36.5); MONO # 0.7 10^3/uL (0.0-0.8); MONO % 8.4 % (0.0-5.0); NEUTROPHILS # 5.9 10^3/uL (1.5-8.5); NEUTROPHILS % 70.9 % (36.0-66.0); PLATELET COUNT, AUTOMATED 234 10^3/uL (150-450); RED BLOOD COUNT 4.83 10^6/uL (4.30-6.10); WHITE BLOOD COUNT 8.4 10^3/uL (4.0-10.0)
[2019-09-11 08:29] LABS: BLOOD UREA NITROGEN 14 MG/DL (7-18); CALCIUM LEVEL 8.8 MG/DL (8.5-10.1); CARBON DIOXIDE LEVEL 26 MEQ/L (21-32); CHLORIDE LEVEL 108 MEQ/L (98-107); CREATININE FOR GFR 0.78 MG/DL (0.70-1.30); GLOMERULAR FILTRATION RATE > 60.0 (>60); GLUCOSE, FASTING 91 MG/DL (70-100); POTASSIUM SERUM 3.8 MEQ/L (3.5-5.1); SODIUM LEVEL 140 MEQ/L (136-145)
== END ==
LOC: M LAB 07:41
PROVIDERS: ATTEND Internal Medicine Medical Oncology
DX: C71.9 Malignant neoplasm of brain, unspecified (principal)

== ENCOUNTER → 2019-09-25 | Outpatient (CLI) | payer BC ==
[2019-11-22 15:47] LABS: BLOOD UREA NITROGEN 17 MG/DL (7-18); CALCIUM LEVEL 9.2 MG/DL (8.5-10.1); CARBON DIOXIDE LEVEL 29 MEQ/L (21-32); CHLORIDE LEVEL 106 MEQ/L (98-107); CREATININE FOR GFR 1.04 MG/DL (0.70-1.30); GLOMERULAR FILTRATION RATE > 60.0 (>60); GLUCOSE, FASTING 128 MG/DL (70-100); POTASSIUM SERUM 3.9 MEQ/L (3.5-5.1); SODIUM LEVEL 141 MEQ/L (136-145)
[2019-11-23 11:32] LABS: BASO % 0.5 % (0.0-1.0); EOS # 0.1 10^3/uL (0.0-0.5); EOS % 1.6 % (0.0-3.0); HEMATOCRIT 44.6 % (42.0-52.0); HEMOGLOBIN 15.2 g/dl (13.5-17.5); LYMPH # 1.4 10^3/uL (1.5-5.0); LYMPH % 16.5 % (24.0-44.0); MEAN CORPUSCULAR HEMOGLOBIN 30.3 pg (27.0-33.0); MEAN CORPUSCULAR HGB CONC 34.1 g/dl (32.0-36.5); MONO # 0.5 10^3/uL (0.0-0.8); MONO % 5.9 % (0.0-5.0); NEUTROPHILS # 6.2 10^3/uL (1.5-8.5); NEUTROPHILS % 74.9 % (36.0-66.0); PLATELET COUNT, AUTOMATED 242 10^3/uL (150-450); RED BLOOD COUNT 5.01 10^6/uL (4.30-6.10); WHITE BLOOD COUNT 8.3 10^3/uL (4.0-10.0)
== END ==
LOC: M LAB 06:25
PROVIDERS: ATTEND Internal Medicine Medical Oncology
DX: C71.9 Malignant neoplasm of brain, unspecified (principal)

== ENCOUNTER → 2019-10-02 | Outpatient (CLI) | payer BC ==
[2019-11-06 07:23] LABS: BASO % 0.6 % (0.0-1.0); EOS # 0.1 10^3/uL (0.0-0.5); EOS % 1.1 % (0.0-3.0); HEMATOCRIT 39.7 % (42.0-52.0); HEMOGLOBIN 13.8 g/dl (13.5-17.5); LYMPH # 1.2 10^3/uL (1.5-5.0); LYMPH % 16.7 % (24.0-44.0); MEAN CORPUSCULAR HEMOGLOBIN 30.3 pg (27.0-33.0); MEAN CORPUSCULAR HGB CONC 34.8 g/dl (32.0-36.5); MEAN CORPUSCULAR VOLUME 87.3 fl (80.0-96.0); MONO # 0.5 10^3/uL (0.0-0.8); MONO % 7.2 % (0.0-5.0); NEUTROPHILS # 5.2 10^3/uL (1.5-8.5); NEUTROPHILS % 73.8 % (36.0-66.0); PLATELET COUNT, AUTOMATED 202 10^3/uL (150-450); RED BLOOD COUNT 4.55 10^6/uL (4.30-6.10); WHITE BLOOD COUNT 7.1 10^3/uL (4.0-10.0)
[2019-12-27 09:11] LABS: BLOOD UREA NITROGEN 16 MG/DL (7-18); CARBON DIOXIDE LEVEL 27 MEQ/L (21-32); CHLORIDE LEVEL 108 MEQ/L (98-107); CREATININE FOR GFR 0.78 MG/DL (0.70-1.30); GLOMERULAR FILTRATION RATE > 60.0 (>60); GLUCOSE, FASTING 93 MG/DL (70-100); POTASSIUM SERUM 3.9 MEQ/L (3.5-5.1); SODIUM LEVEL 141 MEQ/L (136-145)
== END ==
LOC: M LAB 07:23
PROVIDERS: ATTEND Internal Medicine Medical Oncology
DX: C71.9 Malignant neoplasm of brain, unspecified (principal)

== ENCOUNTER → 2019-10-03 | Outpatient (CLI) | payer BC | LOC: M RAD 14:20 | PROVIDERS: ATTEND Physician Assistant Medical | DX: R22.0 Localized swelling, mass and lump, head (principal); Z98.890 Other specified postprocedural states ==

== ENCOUNTER → 2019-10-09 | Outpatient (CLI) | payer BC ==
[2019-10-09 06:40] LABS: BASO % 0.7 % (0.0-1.0); EOS # 0.1 10^3/uL (0.0-0.5); HEMATOCRIT 44.6 % (42.0-52.0); HEMOGLOBIN 15.1 g/dl (13.5-17.5); LYMPH # 1.5 10^3/uL (1.5-5.0); MEAN CORPUSCULAR HGB CONC 33.9 g/dl (32.0-36.5); MEAN CORPUSCULAR VOLUME 88.7 fl (80.0-96.0); MONO # 0.7 10^3/uL (0.0-0.8); MONO % 10.8 % (0.0-5.0); NEUTROPHILS # 3.7 10^3/uL (1.5-8.5); PLATELET COUNT, AUTOMATED 243 10^3/uL (150-450); RED BLOOD COUNT 5.03 10^6/uL (4.30-6.10)
[2019-10-09 07:11] LABS: BLOOD UREA NITROGEN 13 MG/DL (7-18); CALCIUM LEVEL 8.8 MG/DL (8.5-10.1); CARBON DIOXIDE LEVEL 30 MEQ/L (21-32); CHLORIDE LEVEL 109 MEQ/L (98-107); GLOMERULAR FILTRATION RATE > 60.0 (>60); GLUCOSE, FASTING 86 MG/DL (70-100); POTASSIUM SERUM 3.7 MEQ/L (3.5-5.1); SODIUM LEVEL 140 MEQ/L (136-145)
== END ==
LOC: M LAB 06:17
PROVIDERS: ATTEND Internal Medicine Medical Oncology
DX: C71.9 Malignant neoplasm of brain, unspecified (principal)

== ENCOUNTER → 2019-10-17 | Outpatient (CLI) | payer BC ==
[2019-10-17 08:09] LABS: BASO % 0.7 % (0.0-1.0); EOS # 0.1 10^3/uL (0.0-0.5); EOS % 2.1 % (0.0-3.0); HEMATOCRIT 43.3 % (42.0-52.0); HEMOGLOBIN 14.9 g/dl (13.5-17.5); LYMPH # 1.5 10^3/uL (1.5-5.0); LYMPH % 26.3 % (24.0-44.0); MEAN CORPUSCULAR HEMOGLOBIN 29.9 pg (27.0-33.0); MEAN CORPUSCULAR HGB CONC 34.4 g/dl (32.0-36.5); MEAN CORPUSCULAR VOLUME 86.8 fl (80.0-96.0); MONO # 0.5 10^3/uL (0.0-0.8); MONO % 9.1 % (0.0-5.0); NEUTROPHILS # 3.5 10^3/uL (1.5-8.5); NEUTROPHILS % 61.6 % (36.0-66.0); PLATELET COUNT, AUTOMATED 251 10^3/uL (150-450); RED BLOOD COUNT 4.99 10^6/uL (4.30-6.10); WHITE BLOOD COUNT 5.6 10^3/uL (4.0-10.0)
[2019-10-17 08:31] LABS: BLOOD UREA NITROGEN 15 MG/DL (7-18); CARBON DIOXIDE LEVEL 28 MEQ/L (21-32); CHLORIDE LEVEL 109 MEQ/L (98-107); CREATININE FOR GFR 0.86 MG/DL (0.70-1.30); GLOMERULAR FILTRATION RATE > 60.0 (>60); GLUCOSE, FASTING 83 MG/DL (70-100); POTASSIUM SERUM 3.8 MEQ/L (3.5-5.1); SODIUM LEVEL 143 MEQ/L (136-145)
== END ==
LOC: M LAB 07:42
PROVIDERS: ATTEND Internal Medicine Medical Oncology
DX: C71.9 Malignant neoplasm of brain, unspecified (principal)

== ENCOUNTER 2019-10-20 20:24 | Emergency (ER) | payer BC ==
[~2019-10-20 20:24] MED LIST changes: -BACT800T5 PO; -DEXA2TA PO; -KEPP1TAB PO; -LAMI25TA PO; -MELA3TAB49 PO; -ONDA8TAB8 PO; -TEMO1CAP PO
[2019-10-20] MEDS ORDERED: LAMI25TA PO (21:03)
[2019-10-20] MEDS ORDERED: BACT800T5 PO (21:03)
[2019-10-20] MEDS ORDERED: TEMO1CAP PO (21:03)
[2019-10-20] MEDS ORDERED: MELA3TAB49 PO (21:03)
[2019-10-20] MEDS ORDERED: DEXA2TA PO (21:03)
[2019-10-20] MEDS ORDERED: ONDA8TAB8 PO (21:03)
[2019-10-20 21:21] LABS: BASO # 0.1 10^3/uL (0.0-0.2); BASO % 0.7 % (0.0-1.0); EOS # 0.1 10^3/uL (0.0-0.5); EOS % 0.9 % (0.0-3.0); HEMATOCRIT 46.6 % (42.0-52.0); HEMOGLOBIN 15.6 g/dl (13.5-17.5); LYMPH # 2.6 10^3/uL (1.5-5.0); LYMPH % 22.1 % (24.0-44.0); MEAN CORPUSCULAR HGB CONC 33.5 g/dl (32.0-36.5); MEAN CORPUSCULAR VOLUME 89.6 fl (80.0-96.0); MONO # 0.9 10^3/uL (0.0-0.8); MONO % 8.1 % (0.0-5.0); NEUTROPHILS # 7.8 10^3/uL (1.5-8.5); NEUTROPHILS % 66.3 % (36.0-66.0); PLATELET COUNT, AUTOMATED 297 10^3/uL (150-450); WHITE BLOOD COUNT 11.7 10^3/uL (4.0-10.0)
[2019-10-20 21:47] LABS: ALBUMIN 4.4 GM/DL (3.2-5.2); ALT/SGPT 32 U/L (12-78); BILIRUBIN,DIRECT 0.1 MG/DL (0.0-0.2); BILIRUBIN,TOTAL 0.3 MG/DL (0.2-1.0); BLOOD UREA NITROGEN 10 MG/DL (7-18); CALCIUM LEVEL 9.4 MG/DL (8.5-10.1); CARBON DIOXIDE LEVEL 11 MEQ/L (21-32); CHLORIDE LEVEL 108 MEQ/L (98-107); CREATININE FOR GFR 1.41 MG/DL (0.70-1.30); GLOMERULAR FILTRATION RATE > 60.0 (>60); GLUCOSE, FASTING 100 MG/DL (70-100); POTASSIUM SERUM 3.8 MEQ/L (3.5-5.1); SODIUM LEVEL 140 MEQ/L (136-145); TOTAL PROTEIN 7.7 GM/DL (6.4-8.2)
--- NOTE | 2019-10-20 22:37 | REPVR ---
PROCEDURE INFORMATION: Exam: CT Head Without Contrast Exam date and time: 10/20/2019 10:26 PM Age: 34 years old Clinical indication: Pain; Headache; Additional info: Seizure TECHNIQUE: Imaging protocol: Computed tomography of the head without contrast. Radiation optimization: All CT scans at this facility use at least one of these dose optimization techniques: automated exposure control; mA and/or kV adjustment per patient size (includes targeted exams where dose is matched to clinical indication); or iterative reconstruction. COMPARISON: CT Head without contrast 05/21/2019 7:41 AM FINDINGS: Brain: Right temporal resection cavity or cystic encephalomalacia is again demonstrated. There is overlying dural thickening with calcification. Small hypodense extradural fluid collection is stable. No acute intracranial hemorrhage. No midline shift or cerebral edema. Ventricles: No hydrocephalus. Bones/joints: Prior right pterional craniotomy. Sinuses: Visualized sinuses are unremarkable. No fluid levels. Mastoid air cells: Visualized mastoid air cells are well aerated. Soft tissues: See "Brain" finding. IMPRESSION: No acute intracranial abnormality. Electronically signed by: Gucci Cain On 10/20/2019 22:36:49 PM
[2019-10-20] MEDS ORDERED: KEPP1TAB PO (23:11)
[2019-10-20] MEDS ORDERED: levETIRAcetam 250MG TABLET (KEPPRA) PO ONE (23:15)
[2019-10-20 23:30] VITALS: BP 107/59
--- NOTE | 2019-11-09 13:20 | ECGEPIP ---
[facility] - ED Test Date: 2019-10-20 Pat Name: JULIO LABOY Department: Room: - Gender: Male Nonprofit Director: JUAN JOSE : 1985 Requested By: DEVON Eagle Order Number: [id number] Reading MD: Lina Crawford Measurements Intervals [place] Rate: 127 P: MA: 0 QRS: 29 QRSD: 106 T: 14 QT: 315 QTc: 459 Interpretive Statements SINUS TACHYCARDIA NSTTW abnormalities ABNORMAL RHYTHM ECG INCREASED RATE 03/21/19 No prior Electronically Signed on 11-09-2019 13:20:19 EDT by Lina Crawford
== END 2019-10-20 23:59 | disposition home or self-care (01) ==
LOC: M ED 20:24 → EDBD 20:24 → M ED 23:59
DX: G40.909 Epilepsy, unspecified, not intractable, without status epilepticus (principal); R00.0 Tachycardia, unspecified; R94.31 Abnormal electrocardiogram [ECG] [EKG]; Z79.899 Other long term (current) drug therapy

== ENCOUNTER → 2019-10-20 | Outpatient (CLI) | payer BC ==
[2019-10-20 07:30] LABS: BASO % 0.7 % (0.0-1.0); EOS # 0.1 10^3/uL (0.0-0.5); EOS % 2.2 % (0.0-3.0); HEMATOCRIT 41.7 % (42.0-52.0); HEMOGLOBIN 14.6 g/dl (13.5-17.5); LYMPH # 1.4 10^3/uL (1.5-5.0); LYMPH % 26.3 % (24.0-44.0); MEAN CORPUSCULAR VOLUME 85.8 fl (80.0-96.0); MONO # 0.6 10^3/uL (0.0-0.8); MONO % 11.1 % (0.0-5.0); NEUTROPHILS # 3.2 10^3/uL (1.5-8.5); NEUTROPHILS % 59.3 % (36.0-66.0); PLATELET COUNT, AUTOMATED 236 10^3/uL (150-450); RED BLOOD COUNT 4.86 10^6/uL (4.30-6.10); WHITE BLOOD COUNT 5.4 10^3/uL (4.0-10.0)
[2019-10-20 07:50] LABS: BLOOD UREA NITROGEN 12 MG/DL (7-18); CALCIUM LEVEL 9.1 MG/DL (8.5-10.1); CARBON DIOXIDE LEVEL 26 MEQ/L (21-32); CHLORIDE LEVEL 105 MEQ/L (98-107); CREATININE FOR GFR 0.85 MG/DL (0.70-1.30); GLOMERULAR FILTRATION RATE > 60.0 (>60); GLUCOSE, FASTING 87 MG/DL (70-100); POTASSIUM SERUM 3.4 MEQ/L (3.5-5.1); SODIUM LEVEL 137 MEQ/L (136-145)
== END ==
LOC: M LAB 06:56
PROVIDERS: ATTEND Internal Medicine Medical Oncology
DX: C71.9 Malignant neoplasm of brain, unspecified (principal)

== ENCOUNTER → 2019-10-23 | Outpatient (CLI) | payer BC ==
[~2019-10-23] MED LIST changes: +BACT800T5 PO; +DEXA2TA PO; +KEPP1TAB PO; +LAMI25TA PO; +MELA3TAB49 PO; +ONDA8TAB8 PO; +TEMO1CAP PO
== END ==
LOC: M LAB 07:09
PROVIDERS: ATTEND Psychiatry & Neurology Neurology
DX: G40.109 Localization-related (focal) (partial) symptomatic epilepsy and epileptic syndromes with simple partial seizures, not intractable, without status epilepticus (principal)

== ENCOUNTER → 2019-11-11 | Outpatient (CLI) | payer BC ==
[2019-11-11 08:13] LABS: BASO # 0.1 10^3/uL (0.0-0.2); BASO % 0.7 % (0.0-1.0); EOS # 0.1 10^3/uL (0.0-0.5); EOS % 1.7 % (0.0-3.0); HEMATOCRIT 44.1 % (42.0-52.0); HEMOGLOBIN 15.3 g/dl (13.5-17.5); LYMPH # 1.3 10^3/uL (1.5-5.0); LYMPH % 17.6 % (24.0-44.0); MEAN CORPUSCULAR HEMOGLOBIN 30.2 pg (27.0-33.0); MEAN CORPUSCULAR HGB CONC 34.7 g/dl (32.0-36.5); MEAN CORPUSCULAR VOLUME 87.2 fl (80.0-96.0); MONO # 0.7 10^3/uL (0.0-0.8); MONO % 8.8 % (0.0-5.0); NEUTROPHILS # 5.3 10^3/uL (1.5-8.5); NEUTROPHILS % 70.8 % (36.0-66.0); PLATELET COUNT, AUTOMATED 269 10^3/uL (150-450); RED BLOOD COUNT 5.06 10^6/uL (4.30-6.10); WHITE BLOOD COUNT 7.5 10^3/uL (4.0-10.0)
[2019-11-11 08:37] LABS: BLOOD UREA NITROGEN 13 MG/DL (7-18); CALCIUM LEVEL 9.5 MG/DL (8.5-10.1); CARBON DIOXIDE LEVEL 27 MEQ/L (21-32); CHLORIDE LEVEL 107 MEQ/L (98-107); CREATININE FOR GFR 0.77 MG/DL (0.70-1.30); GLOMERULAR FILTRATION RATE > 60.0 (>60); GLUCOSE, FASTING 85 MG/DL (70-100); SODIUM LEVEL 140 MEQ/L (136-145)
== END ==
LOC: M LAB 07:09
PROVIDERS: ATTEND Internal Medicine Medical Oncology
DX: C71.9 Malignant neoplasm of brain, unspecified (principal)

== ENCOUNTER → 2019-11-21 | Outpatient (CLI) | payer BC ==
[2019-11-21 07:25] LABS: BASO % 0.5 % (0.0-1.0); EOS # 0.1 10^3/uL (0.0-0.5); EOS % 1.6 % (0.0-3.0); HEMOGLOBIN 15.2 g/dl (13.5-17.5); LYMPH # 1.3 10^3/uL (1.5-5.0); LYMPH % 16.4 % (24.0-44.0); MEAN CORPUSCULAR HEMOGLOBIN 29.3 pg (27.0-33.0); MEAN CORPUSCULAR HGB CONC 33.8 g/dl (32.0-36.5); MEAN CORPUSCULAR VOLUME 86.9 fl (80.0-96.0); MONO # 0.7 10^3/uL (0.0-0.8); MONO % 8.8 % (0.0-5.0); NEUTROPHILS # 5.7 10^3/uL (1.5-8.5); NEUTROPHILS % 72.1 % (36.0-66.0); PLATELET COUNT, AUTOMATED 232 10^3/uL (150-450); RED BLOOD COUNT 5.18 10^6/uL (4.30-6.10); WHITE BLOOD COUNT 7.9 10^3/uL (4.0-10.0)
[2019-11-21 08:00] LABS: BLOOD UREA NITROGEN 17 MG/DL (7-18); CALCIUM LEVEL 9.4 MG/DL (8.5-10.1); CARBON DIOXIDE LEVEL 30 MEQ/L (21-32); CHLORIDE LEVEL 103 MEQ/L (98-107); CREATININE FOR GFR 0.93 MG/DL (0.70-1.30); GLOMERULAR FILTRATION RATE > 60.0 (>60); GLUCOSE, FASTING 84 MG/DL (70-100); POTASSIUM SERUM 3.9 MEQ/L (3.5-5.1); SODIUM LEVEL 138 MEQ/L (136-145)
== END ==
LOC: M LAB 07:03
PROVIDERS: ATTEND Internal Medicine Medical Oncology
DX: C71.9 Malignant neoplasm of brain, unspecified (principal)

== ENCOUNTER → 2019-12-04 | Outpatient (CLI) | payer BC ==
[2019-12-04 08:09] LABS: BASO % 0.3 % (0.0-1.0); EOS # 0.1 10^3/uL (0.0-0.5); HEMATOCRIT 45.1 % (42.0-52.0); HEMOGLOBIN 15.9 g/dl (13.5-17.5); LYMPH # 1.3 10^3/uL (1.5-5.0); LYMPH % 16.1 % (24.0-44.0); MEAN CORPUSCULAR HEMOGLOBIN 30.1 pg (27.0-33.0); MEAN CORPUSCULAR HGB CONC 35.3 g/dl (32.0-36.5); MEAN CORPUSCULAR VOLUME 85.3 fl (80.0-96.0); MONO # 0.6 10^3/uL (0.0-0.8); MONO % 7.7 % (0.0-5.0); NEUTROPHILS # 5.9 10^3/uL (1.5-8.5); NEUTROPHILS % 74.4 % (36.0-66.0); PLATELET COUNT, AUTOMATED 241 10^3/uL (150-450); RED BLOOD COUNT 5.29 10^6/uL (4.30-6.10); WHITE BLOOD COUNT 7.9 10^3/uL (4.0-10.0)
[2019-12-04 08:27] LABS: BLOOD UREA NITROGEN 18 MG/DL (7-18); CALCIUM LEVEL 9.2 MG/DL (8.5-10.1); CARBON DIOXIDE LEVEL 25 MEQ/L (21-32); CHLORIDE LEVEL 107 MEQ/L (98-107); CREATININE FOR GFR 0.77 MG/DL (0.70-1.30); GLOMERULAR FILTRATION RATE > 60.0 (>60); GLUCOSE, FASTING 84 MG/DL (70-100); POTASSIUM SERUM 3.7 MEQ/L (3.5-5.1); SODIUM LEVEL 140 MEQ/L (136-145)
== END ==
LOC: M LAB 07:28
PROVIDERS: ATTEND Internal Medicine Medical Oncology
DX: C71.9 Malignant neoplasm of brain, unspecified (principal)

== ENCOUNTER → 2019-12-12 | Outpatient (CLI) | payer BC ==
[2019-12-12 18:51] LABS: BASO # 0.1 10^3/uL (0.0-0.2); BASO % 0.6 % (0.0-1.0); EOS # 0.2 10^3/uL (0.0-0.5); EOS % 1.9 % (0.0-3.0); HEMATOCRIT 45.6 % (42.0-52.0); HEMOGLOBIN 15.6 g/dl (13.5-17.5); LYMPH # 1.5 10^3/uL (1.5-5.0); LYMPH % 16.8 % (24.0-44.0); MEAN CORPUSCULAR HEMOGLOBIN 29.4 pg (27.0-33.0); MEAN CORPUSCULAR HGB CONC 34.2 g/dl (32.0-36.5); MONO # 0.8 10^3/uL (0.0-0.8); MONO % 9.2 % (0.0-5.0); NEUTROPHILS # 6.1 10^3/uL (1.5-8.5); PLATELET COUNT, AUTOMATED 253 10^3/uL (150-450); WHITE BLOOD COUNT 8.6 10^3/uL (4.0-10.0)
== END ==
LOC: M LAB 18:09
PROVIDERS: ATTEND Internal Medicine Medical Oncology
DX: C71.9 Malignant neoplasm of brain, unspecified (principal)

== ENCOUNTER → 2019-12-19 | Outpatient (CLI) | payer BC ==
[2019-12-19 07:28] LABS: BASO % 0.6 % (0.0-1.0); EOS # 0.1 10^3/uL (0.0-0.5); EOS % 1.7 % (0.0-3.0); HEMATOCRIT 45.5 % (42.0-52.0); HEMOGLOBIN 15.1 g/dl (13.5-17.5); LYMPH # 1.3 10^3/uL (1.5-5.0); MEAN CORPUSCULAR HEMOGLOBIN 28.8 pg (27.0-33.0); MEAN CORPUSCULAR HGB CONC 33.2 g/dl (32.0-36.5); MEAN CORPUSCULAR VOLUME 86.8 fl (80.0-96.0); MONO # 0.7 10^3/uL (0.0-0.8); MONO % 10.1 % (0.0-5.0); NEUTROPHILS # 4.8 10^3/uL (1.5-8.5); NEUTROPHILS % 69.2 % (36.0-66.0); PLATELET COUNT, AUTOMATED 220 10^3/uL (150-450); RED BLOOD COUNT 5.24 10^6/uL (4.30-6.10)
[2019-12-19 07:46] LABS: BLOOD UREA NITROGEN 21 MG/DL (7-18); CALCIUM LEVEL 9.1 MG/DL (8.5-10.1); CARBON DIOXIDE LEVEL 30 MEQ/L (21-32); CHLORIDE LEVEL 106 MEQ/L (98-107); CREATININE FOR GFR 0.79 MG/DL (0.70-1.30); GLOMERULAR FILTRATION RATE > 60.0 (>60); GLUCOSE, FASTING 91 MG/DL (70-100); POTASSIUM SERUM 4.1 MEQ/L (3.5-5.1); SODIUM LEVEL 141 MEQ/L (136-145)
== END ==
LOC: M LAB 06:43
PROVIDERS: ATTEND Internal Medicine Medical Oncology
DX: C71.9 Malignant neoplasm of brain, unspecified (principal)

== ENCOUNTER → 2019-12-26 | Outpatient (CLI) | payer BC ==
[2019-12-26 06:57] LABS: BASO # 0.1 10^3/uL (0.0-0.2); BASO % 0.8 % (0.0-1.0); EOS # 0.1 10^3/uL (0.0-0.5); EOS % 1.9 % (0.0-3.0); HEMATOCRIT 46.8 % (42.0-52.0); LYMPH # 1.2 10^3/uL (1.5-5.0); LYMPH % 19.5 % (24.0-44.0); MEAN CORPUSCULAR HEMOGLOBIN 29.1 pg (27.0-33.0); MEAN CORPUSCULAR HGB CONC 34.2 g/dl (32.0-36.5); MEAN CORPUSCULAR VOLUME 85.2 fl (80.0-96.0); MONO # 0.6 10^3/uL (0.0-0.8); MONO % 8.9 % (0.0-5.0); NEUTROPHILS # 4.3 10^3/uL (1.5-8.5); NEUTROPHILS % 68.3 % (36.0-66.0); PLATELET COUNT, AUTOMATED 214 10^3/uL (150-450); RED BLOOD COUNT 5.49 10^6/uL (4.30-6.10); WHITE BLOOD COUNT 6.3 10^3/uL (4.0-10.0)
[2019-12-26 07:25] LABS: BLOOD UREA NITROGEN 15 MG/DL (7-18); CALCIUM LEVEL 9.4 MG/DL (8.5-10.1); CARBON DIOXIDE LEVEL 29 MEQ/L (21-32); CHLORIDE LEVEL 105 MEQ/L (98-107); CREATININE FOR GFR 0.89 MG/DL (0.70-1.30); GLOMERULAR FILTRATION RATE > 60.0 (>60); GLUCOSE, FASTING 87 MG/DL (70-100); POTASSIUM SERUM 4.1 MEQ/L (3.5-5.1); SODIUM LEVEL 139 MEQ/L (136-145)
== END ==
LOC: M LAB 06:21
PROVIDERS: ATTEND Internal Medicine Medical Oncology
DX: C71.9 Malignant neoplasm of brain, unspecified (principal)

== ENCOUNTER → 2020-01-02 | Outpatient (CLI) | payer BC ==
[2020-01-02 07:39] LABS: BASO # 0.1 10^3/uL (0.0-0.2); BASO % 0.8 % (0.0-1.0); EOS # 0.1 10^3/uL (0.0-0.5); EOS % 1.9 % (0.0-3.0); HEMATOCRIT 46.7 % (42.0-52.0); HEMOGLOBIN 15.7 g/dl (13.5-17.5); LYMPH # 1.2 10^3/uL (1.5-5.0); LYMPH % 18.5 % (24.0-44.0); MEAN CORPUSCULAR HEMOGLOBIN 28.9 pg (27.0-33.0); MEAN CORPUSCULAR HGB CONC 33.6 g/dl (32.0-36.5); MONO # 0.6 10^3/uL (0.0-0.8); MONO % 10.1 % (0.0-5.0); NEUTROPHILS # 4.3 10^3/uL (1.5-8.5); NEUTROPHILS % 68.1 % (36.0-66.0); PLATELET COUNT, AUTOMATED 230 10^3/uL (150-450); RED BLOOD COUNT 5.43 10^6/uL (4.30-6.10); WHITE BLOOD COUNT 6.3 10^3/uL (4.0-10.0)
[2020-01-02 07:51] LABS: BLOOD UREA NITROGEN 17 MG/DL (7-18); CALCIUM LEVEL 9.4 MG/DL (8.5-10.1); CARBON DIOXIDE LEVEL 30 MEQ/L (21-32); CHLORIDE LEVEL 105 MEQ/L (98-107); CREATININE FOR GFR 0.82 MG/DL (0.70-1.30); GLOMERULAR FILTRATION RATE > 60.0 (>60); GLUCOSE, FASTING 87 MG/DL (70-100); POTASSIUM SERUM 4.1 MEQ/L (3.5-5.1); SODIUM LEVEL 140 MEQ/L (136-145)
== END ==
LOC: M LAB 06:55
PROVIDERS: ATTEND Internal Medicine Medical Oncology
DX: C71.9 Malignant neoplasm of brain, unspecified (principal)

== ENCOUNTER → 2020-01-09 | Outpatient (CLI) | payer BC | LOC: M LAB 12:49 | PROVIDERS: ATTEND Internal Medicine Hematology & Oncology | DX: C71.9 Malignant neoplasm of brain, unspecified (principal) ==

== ENCOUNTER → 2020-01-09 | Outpatient (CLI) | payer BC ==
[2020-01-09 14:25] LABS: BASO % 0.4 % (0.0-1.0); EOS % 0.4 % (0.0-3.0); HEMATOCRIT 44.3 % (42.0-52.0); HEMOGLOBIN 14.9 g/dl (13.5-17.5); LYMPH % 13.3 % (24.0-44.0); MEAN CORPUSCULAR HGB CONC 33.6 g/dl (32.0-36.5); MEAN CORPUSCULAR VOLUME 86.2 fl (80.0-96.0); MONO # 0.5 10^3/uL (0.0-0.8); MONO % 6.9 % (0.0-5.0); NEUTROPHILS # 6.1 10^3/uL (1.5-8.5); NEUTROPHILS % 78.5 % (36.0-66.0); PLATELET COUNT, AUTOMATED 271 10^3/uL (150-450); RED BLOOD COUNT 5.14 10^6/uL (4.30-6.10); WHITE BLOOD COUNT 7.7 10^3/uL (4.0-10.0)
== END ==
LOC: M LAB 12:51
PROVIDERS: ATTEND Psychiatry & Neurology Neurology
DX: G40.109 Localization-related (focal) (partial) symptomatic epilepsy and epileptic syndromes with simple partial seizures, not intractable, without status epilepticus (principal)

== ENCOUNTER → 2020-01-21 | Outpatient (CLI) | payer BC ==
[2020-01-21 17:11] LABS: BASO # 0.1 10^3/uL (0.0-0.2); BASO % 0.8 % (0.0-1.0); EOS # 0.1 10^3/uL (0.0-0.5); EOS % 1.4 % (0.0-3.0); HEMATOCRIT 45.4 % (42.0-52.0); HEMOGLOBIN 15.8 g/dl (13.5-17.5); LYMPH # 1.4 10^3/uL (1.5-5.0); LYMPH % 17.5 % (24.0-44.0); MEAN CORPUSCULAR HEMOGLOBIN 29.5 pg (27.0-33.0); MEAN CORPUSCULAR HGB CONC 34.8 g/dl (32.0-36.5); MEAN CORPUSCULAR VOLUME 84.7 fl (80.0-96.0); MONO # 0.8 10^3/uL (0.0-0.8); MONO % 9.9 % (0.0-5.0); NEUTROPHILS # 5.4 10^3/uL (1.5-8.5); PLATELET COUNT, AUTOMATED 245 10^3/uL (150-450); RED BLOOD COUNT 5.36 10^6/uL (4.30-6.10); WHITE BLOOD COUNT 7.8 10^3/uL (4.0-10.0)
== END ==
LOC: M LAB 16:46
PROVIDERS: ATTEND Internal Medicine Hematology & Oncology
DX: C71.9 Malignant neoplasm of brain, unspecified (principal)

== ENCOUNTER → 2020-01-30 | Outpatient (CLI) | payer BC ==
[2020-01-30 07:21] LABS: BASO # 0.1 10^3/uL (0.0-0.2); BASO % 1.2 % (0.0-1.0); EOS # 0.2 10^3/uL (0.0-0.5); EOS % 3.3 % (0.0-3.0); HEMATOCRIT 43.9 % (42.0-52.0); HEMOGLOBIN 14.6 g/dl (13.5-17.5); LYMPH # 1.3 10^3/uL (1.5-5.0); LYMPH % 24.2 % (24.0-44.0); MEAN CORPUSCULAR HEMOGLOBIN 28.4 pg (27.0-33.0); MEAN CORPUSCULAR HGB CONC 33.3 g/dl (32.0-36.5); MEAN CORPUSCULAR VOLUME 85.4 fl (80.0-96.0); MONO # 0.7 10^3/uL (0.0-0.8); MONO % 13.2 % (0.0-5.0); NEUTROPHILS % 57.7 % (36.0-66.0); PLATELET COUNT, AUTOMATED 212 10^3/uL (150-450); RED BLOOD COUNT 5.14 10^6/uL (4.30-6.10); WHITE BLOOD COUNT 5.2 10^3/uL (4.0-10.0)
== END ==
LOC: M LAB 06:43
PROVIDERS: ATTEND Internal Medicine Hematology & Oncology
DX: C71.9 Malignant neoplasm of brain, unspecified (principal)

== ENCOUNTER → 2020-02-06 | Outpatient (CLI) | payer BC ==
[2020-02-06 07:46] LABS: BASO # 0.1 10^3/uL (0.0-0.2); BASO % 0.8 % (0.0-1.0); EOS # 0.3 10^3/uL (0.0-0.5); EOS % 4.2 % (0.0-3.0); HEMATOCRIT 45.1 % (42.0-52.0); HEMOGLOBIN 15.4 g/dl (13.5-17.5); LYMPH # 1.4 10^3/uL (1.5-5.0); LYMPH % 22.9 % (24.0-44.0); MEAN CORPUSCULAR HEMOGLOBIN 28.8 pg (27.0-33.0); MEAN CORPUSCULAR HGB CONC 34.1 g/dl (32.0-36.5); MEAN CORPUSCULAR VOLUME 84.3 fl (80.0-96.0); MONO # 0.8 10^3/uL (0.0-0.8); MONO % 12.1 % (0.0-5.0); NEUTROPHILS # 3.7 10^3/uL (1.5-8.5); NEUTROPHILS % 59.7 % (36.0-66.0); PLATELET COUNT, AUTOMATED 230 10^3/uL (150-450); RED BLOOD COUNT 5.35 10^6/uL (4.30-6.10); WHITE BLOOD COUNT 6.2 10^3/uL (4.0-10.0)
== END ==
LOC: M LAB 07:12
PROVIDERS: ATTEND Internal Medicine Hematology & Oncology
DX: C71.9 Malignant neoplasm of brain, unspecified (principal)

== ENCOUNTER → 2020-04-01 | Outpatient (CLI) | payer BC ==
[~2020-04-01] MED LIST changes: +TEMO100C17 PO; -TEMO1CAP PO
[2020-04-01 07:45] LABS: BASO % 0.6 % (0.0-1.0); EOS # 0.1 10^3/uL (0.0-0.5); EOS % 1.3 % (0.0-3.0); HEMATOCRIT 46.1 % (42.0-52.0); HEMOGLOBIN 15.3 g/dl (13.5-17.5); LYMPH # 1.3 10^3/uL (1.5-5.0); LYMPH % 18.1 % (24.0-44.0); MEAN CORPUSCULAR HEMOGLOBIN 28.1 pg (27.0-33.0); MEAN CORPUSCULAR HGB CONC 33.2 g/dl (32.0-36.5); MEAN CORPUSCULAR VOLUME 84.6 fl (80.0-96.0); MONO # 0.5 10^3/uL (0.0-0.8); MONO % 6.8 % (0.0-5.0); NEUTROPHILS % 72.9 % (36.0-66.0); PLATELET COUNT, AUTOMATED 233 10^3/uL (150-450); RED BLOOD COUNT 5.45 10^6/uL (4.30-6.10); WHITE BLOOD COUNT 6.9 10^3/uL (4.0-10.0)
== END ==
LOC: M LAB 07:25
PROVIDERS: ATTEND Internal Medicine Hematology & Oncology
DX: C71.9 Malignant neoplasm of brain, unspecified (principal)

== ENCOUNTER → 2020-04-08 | Outpatient (CLI) | payer BC | LOC: M LAB 18:44 | PROVIDERS: ATTEND Psychiatry & Neurology Neurology | DX: R56.9 Unspecified convulsions (principal) ==

== ENCOUNTER → 2020-08-13 | Outpatient (REF) | payer BC, MEDICAID ==
[2020-08-13 12:29] LABS: BASO % 0.2 % (0.0-1.0); EOS % 0.3 % (0.0-3.0); HEMOGLOBIN 12.6 g/dl (13.5-17.5); LYMPH # 0.6 10^3/uL (1.5-5.0); LYMPH % 6.1 % (24.0-44.0); MEAN CORPUSCULAR HEMOGLOBIN 35.1 pg (27.0-33.0); MEAN CORPUSCULAR HGB CONC 33.2 g/dl (32.0-36.5); MEAN CORPUSCULAR VOLUME 105.8 fl (80.0-96.0); MONO # 0.7 10^3/uL (0.0-0.8); MONO % 7.1 % (2.0-8.0); NEUTROPHILS # 7.9 10^3/uL (1.5-8.5); NEUTROPHILS % 81.8 % (36.0-66.0); PLATELET COUNT, AUTOMATED 218 10^3/uL (150-450); RED BLOOD COUNT 3.59 10^6/uL (4.30-6.10); WHITE BLOOD COUNT 9.7 10^3/uL (4.0-10.0)
[2020-08-13 12:54] LABS: ALBUMIN 2.9 GM/DL (3.2-5.2); ALT/SGPT 153 U/L (12-78); BILIRUBIN,TOTAL 0.4 MG/DL (0.2-1.0); BLOOD UREA NITROGEN 13 MG/DL (7-18); CALCIUM LEVEL 8.4 MG/DL (8.5-10.1); CARBON DIOXIDE LEVEL 25 MEQ/L (21-32); CHLORIDE LEVEL 111 MEQ/L (98-107); CREATININE FOR GFR 0.56 MG/DL (0.70-1.30); GLOMERULAR FILTRATION RATE > 60.0 (>60); GLUCOSE, FASTING 120 MG/DL (70-100); POTASSIUM SERUM 3.3 MEQ/L (3.5-5.1); SODIUM LEVEL 144 MEQ/L (136-145); TOTAL PROTEIN 5.3 GM/DL (6.4-8.2)
[2020-08-13 16:16] LABS: AMORPHOUS SEDIMENT MODERATE (NEGATIVE); APPEARANCE, URINE CLOUDY (CLEAR); BACTERIA, URINE AUTO 1+ (NEGATIVE); BILIRUBIN, URINE AUTO NEGATIVE (NEGATIVE); BLOOD, URINE BLOOD NEGATIVE (NEGATIVE); COLOR, URINE YELLOW (YELLOW); GLUCOSE, URINE (UA) AUTO NEGATIVE (NEGATIVE); KETONE, URINE AUTO NEGATIVE (NEGATIVE); LEUKOCYTE ESTERASE, URINE AUTO NEGATIVE (NEGATIVE); MUCUS, URINE SMALL (NEGATIVE); NITRITE, URINE AUTO NEGATIVE (NEGATIVE); PROTEIN, URINE AUTO NEGATIVE (NEGATIVE); RBC, URINE AUTO 13 /HPF (0-3); SPECIFIC GRAVITY URINE AUTO 1.015 (1.002-1.035); SQUAMOUS EPITHELIAL CELL UR AU 0 /HPF (0-6); WBC, URINE AUTO 1 /HPF (0-3)
== END ==
LOC: M LAB REF 11:58
PROVIDERS: ATTEND Nurse Practitioner Family
DX: C71.9 Malignant neoplasm of brain, unspecified (principal)

== ENCOUNTER 2020-08-20 18:08 | Emergency (ER) | payer BC, OTHER ==
[~2020-08-20] VITALS: Ht 170.2 cm; Wt 81.4 kg
[~2020-08-20 18:08] MED LIST changes: -D31000TA2; -ENOX30IN3; -LYNP150T PO; -PYRI50TA40; -SCOP1PAT2; -SERT25TA21; -TOPI50TA9
[2020-08-20] MEDS ORDERED: ENOX30IN3 (18:20)
[2020-08-20] MEDS ORDERED: D31000TA2 (18:20)
[2020-08-20] MEDS ORDERED: PYRI50TA40 (18:20)
[2020-08-20] MEDS ORDERED: TOPI50TA9 (18:20)
[2020-08-20] MEDS ORDERED: SERT25TA21 (18:20)
[2020-08-20] MEDS ORDERED: LYNP150T PO (18:20)
[2020-08-20] MEDS ORDERED: SCOP1PAT2 (18:20)
[2020-08-20 19:42] LABS: BASO % 0.3 % (0.0-1.0); HEMATOCRIT 42.6 % (42.0-52.0); HEMOGLOBIN 14.4 g/dl (13.5-17.5); LYMPH # 0.4 10^3/uL (1.5-5.0); LYMPH % 3.7 % (24.0-44.0); MEAN CORPUSCULAR HEMOGLOBIN 35.6 pg (27.0-33.0); MEAN CORPUSCULAR HGB CONC 33.8 g/dl (32.0-36.5); MEAN CORPUSCULAR VOLUME 105.2 fl (80.0-96.0); MONO # 0.6 10^3/uL (0.0-0.8); NEUTROPHILS # 9.5 10^3/uL (1.5-8.5); NEUTROPHILS % 87.3 % (36.0-66.0); PLATELET COUNT, AUTOMATED 185 10^3/uL (150-450); RED BLOOD COUNT 4.05 10^6/uL (4.30-6.10); WHITE BLOOD COUNT 10.9 10^3/uL (4.0-10.0)
[2020-08-20 20:13] LABS: ALT/SGPT 209 U/L (12-78); BILIRUBIN,DIRECT 0.2 MG/DL (0.0-0.2); BILIRUBIN,TOTAL 0.3 MG/DL (0.2-1.0); BLOOD UREA NITROGEN 17 MG/DL (7-18); CALCIUM LEVEL 8.5 MG/DL (8.5-10.1); CARBON DIOXIDE LEVEL 21 MEQ/L (21-32); CHLORIDE LEVEL 107 MEQ/L (98-107); CREATININE FOR GFR 0.56 MG/DL (0.70-1.30); GLOMERULAR FILTRATION RATE > 60.0 (>60); GLUCOSE, FASTING 160 MG/DL (70-100); LIPASE 201 U/L (73-393); POTASSIUM SERUM 3.9 MEQ/L (3.5-5.1); SODIUM LEVEL 140 MEQ/L (136-145); TOTAL PROTEIN 5.7 GM/DL (6.4-8.2)
[2020-08-20] MEDS ORDERED: NS 1,000 ML IV ONE (23:20)
--- NOTE | 2020-08-20 23:34 | REPVR ---
PROCEDURE INFORMATION: Exam: CT Abdomen And Pelvis Without Contrast Exam date and time: 08/20/2020 10:35 PM Age: 35 years old Clinical indication: Other: Hematuria; Additional info: Hemturia TECHNIQUE: Imaging protocol: Computed tomography of the abdomen and pelvis without contrast. Radiation optimization: All CT scans at this facility use at least one of these dose optimization techniques: automated exposure control; mA and/or kV adjustment per patient size (includes targeted exams where dose is matched to clinical indication); or iterative reconstruction. 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 Heart: There is moderate cardiomegaly. A small amount pericardial effusion is seen. Liver: Normal appearing liver. Gallbladder and bile ducts: Normal appearing gallbladder. Pancreas: Normal pancreas. Spleen: Normal spleen. Normal spleen. Adrenal glands: Normal adrenal glands. Kidneys and ureters: There is small calcified stones lower pole left kidney/nonobstructive. There is mild dilatation left collecting system. 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 There are 3 small calcified stones in the distal aspect of the left ureter measuring 2 mm each. These stones may produce intermittent or partial obstruction. Stomach and bowel: The cecum is in the right pelvis and there is no evidence of inflammation. Normal appearing small bowel. Intraperitoneal space: There is no evidence of pneumoperitoneum. Vasculature: Unremarkable. No abdominal aortic aneurysm. Lymph nodes: There is no evidence of periaortic lymphadenopathy. Urinary bladder: There are small calcified stones within the left side of the urinary bladder. Smooth appearing margins of the urinary bladder. Reproductive: Normal size prostate. 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 Soft tissues: Small areas of subcutaneous density anterior earlier probably from subcutaneous injections. Bubbles of air noted on the left in the subcutaneous area. IMPRESSION: 1. Duplication of the left collecting system. 2. Three calcified renal stones measuring 2 mm each in the distal left ureter causing intermittent or partial obstruction. 3. Several calcified stones lower pole left kidney. 4. Small calcified stones within the left side of the urinary bladder. Electronically signed by: Misael Hernández On 08/20/2020 23:34:11 PM
[2020-08-20] MEDS ORDERED: TOPIRAMATE (TopAMAX) 25 MG TAB PO ONE (23:55)
[2020-08-20] MEDS ORDERED: levETIRAcetam 250MG TABLET (KEPPRA) PO ONE (23:55)
[2020-08-20] MEDS ORDERED: SERTRALINE HCL 25 MG TABLET PO ONE (23:55)
[2020-08-21 00:45] VITALS: BP 134/80
== END 2020-08-21 01:00 | disposition home or self-care (01) ==
LOC: M ED 18:08
DX: N20.1 Calculus of ureter (principal); N20.0 Calculus of kidney; Z79.899 Other long term (current) drug therapy

== ENCOUNTER → 2020-08-20 | Outpatient (REF) | payer BC, MEDICAID ==
[~2020-08-20] MED LIST changes: +D31000TA2; +ENOX30IN3; +LYNP150T PO; +PYRI50TA40; +SCOP1PAT2; +SERT25TA21; +TOPI50TA9
[2020-08-20 15:40] LABS: APPEARANCE, URINE CLOUDY (CLEAR); BACTERIA, URINE AUTO 1+ (NEGATIVE); BILIRUBIN, URINE AUTO NEGATIVE (NEGATIVE); BLOOD, URINE BLOOD 3+ (NEGATIVE); CALCIUM OXALATE CRYSTALS SMALL; COLOR, URINE YELLOW (YELLOW); GLUCOSE, URINE (UA) AUTO NEGATIVE (NEGATIVE); KETONE, URINE AUTO NEGATIVE (NEGATIVE); LEUKOCYTE ESTERASE, URINE AUTO NEGATIVE (NEGATIVE); MUCUS, URINE SMALL (NEGATIVE); NITRITE, URINE AUTO NEGATIVE (NEGATIVE); PROTEIN, URINE AUTO 1+ mg/dL (NEGATIVE); RBC, URINE AUTO TNTC /HPF (0-3); SPECIFIC GRAVITY URINE AUTO 1.021 (1.002-1.035); SQUAMOUS EPITHELIAL CELL UR AU 0 /HPF (0-6); WBC, URINE AUTO 4 /HPF (0-3)
== END ==
LOC: M LAB REF 15:00
PROVIDERS: ATTEND Nurse Practitioner Family
DX: R82.90 Unspecified abnormal findings in urine (principal)

== ENCOUNTER → 2020-09-02 | Outpatient (REF) | payer BC, OTHER ==
[~2020-09-02] MED LIST changes: +D31000TA2; +ENOX30IN3; +LYNP150T PO; +POTA1TAB14 PO; +PYRI50TA40; +SCOP1PAT2; +SERT25TA21; +TOPI50TA9
[2020-09-02 16:46] LABS: AMORPHOUS SEDIMENT SMALL (NEGATIVE); APPEARANCE, URINE CLEAR (CLEAR); BACTERIA, URINE AUTO NEGATIVE (NEGATIVE); BILIRUBIN, URINE AUTO NEGATIVE (NEGATIVE); BLOOD, URINE BLOOD NEGATIVE (NEGATIVE); COLOR, URINE YELLOW (YELLOW); GLUCOSE, URINE (UA) AUTO 1+ mg/dL (NEGATIVE); KETONE, URINE AUTO NEGATIVE (NEGATIVE); LEUKOCYTE ESTERASE, URINE AUTO NEGATIVE (NEGATIVE); MUCUS, URINE SMALL (NEGATIVE); NITRITE, URINE AUTO NEGATIVE (NEGATIVE); PROTEIN, URINE AUTO NEGATIVE (NEGATIVE); RBC, URINE AUTO 0 /HPF (0-3); SPECIFIC GRAVITY URINE AUTO 1.024 (1.002-1.035); SQUAMOUS EPITHELIAL CELL UR AU 0 /HPF (0-6); WBC, URINE AUTO 1 /HPF (0-3)
== END ==
LOC: M LAB REF 16:08
PROVIDERS: ATTEND Nurse Practitioner Family
DX: C71.9 Malignant neoplasm of brain, unspecified (principal)

== ENCOUNTER → 2020-09-03 | Outpatient (CLI) | payer BC, OTHER ==
[~2020-09-03] MED LIST changes: -POTA1TAB14 PO
--- NOTE | 2020-09-04 10:51 | ECHO ---
ECHOCARDIOGRAM DATE OF PROCEDURE: 09/03/2020 Age: 35 Gender: Male Height: 107 cm Weight: 84 kg REFERRING PHYSICIAN: Milton Javier MD INDICATION: Cardiomegaly. MEASUREMENTS: IVS 1.2 cm LV 4.8 cm LVPW 1.2 cm LA 1.5 cm Aorta 3.7 cm Left atrium volume index 35 ml/m2 Mitral E wave velocity 54 cm/s A wave 50 cm/s E prime septal 7.2 cm/s E prime lateral 6.6 cm/s FINDINGS: This study is of adequate technical quality with somewhat limited visualization. Underlying sinus rhythm. Normal left ventricular (LV) size with normal LV systolic function, estimated ejection fraction (EF) of approximately 60%. Mild left ventricular hypertrophy is noted. Right ventricle is also normal size and systolic function. Left atrium is enlarged. Right atrium was poorly visualized, but grossly appears normal. Aortic, mitral and tricuspid valves appear normal. Pulmonic valve was not well seen. Trivial pericardial effusion is noted. Inferior vena cava is normal size. Aortic root and aortic arch appear normal. Abdominal aorta was not well visualized. Doppler interrogation reveals competent aortic, mitral and tricuspid valves. Mitral inflow pattern and tissue Doppler imaging of mitral annulus reveals likely grade 2 diastolic dysfunction. CONCLUSIONS: 1. Study is of fair technical quality, underlying sinus rhythm. 2. Normal left ventricular (LV) size with mild left ventricular hypertrophy (LVH), preserved LV systolic function and grade 2 diastolic dysfunction. 3. No hemodynamically significant valvular disease. 4. Normal central venous pressure. 5. Unable to estimate pulmonary artery pressure. 6. Trivial pericardial effusion. MTDD
== END ==
LOC: M CARPUL 10:34
PROVIDERS: ATTEND Internal Medicine Medical Oncology
DX: I51.7 Cardiomegaly (principal)

== ENCOUNTER → 2020-09-09 | Outpatient (REF) | payer BC, OTHER ==
[2020-09-09 12:24] LABS: BASO % 0.4 % (0.0-1.0); EOS % 0.3 % (0.0-3.0); HEMATOCRIT 40.3 % (42.0-52.0); HEMOGLOBIN 13.5 g/dl (13.5-17.5); LYMPH # 0.6 10^3/uL (1.5-5.0); LYMPH % 6.9 % (24.0-44.0); MEAN CORPUSCULAR HEMOGLOBIN 35.2 pg (27.0-33.0); MEAN CORPUSCULAR HGB CONC 33.5 g/dl (32.0-36.5); MEAN CORPUSCULAR VOLUME 105.2 fl (80.0-96.0); MONO # 0.6 10^3/uL (0.0-0.8); MONO % 6.7 % (2.0-8.0); NEUTROPHILS # 7.2 10^3/uL (1.5-8.5); NEUTROPHILS % 80.9 % (36.0-66.0); PLATELET COUNT, AUTOMATED 193 10^3/uL (150-450); RED BLOOD COUNT 3.83 10^6/uL (4.30-6.10); WHITE BLOOD COUNT 8.9 10^3/uL (4.0-10.0)
[2020-09-09 12:57] LABS: ALBUMIN 2.8 GM/DL (3.2-5.2); ALT/SGPT 164 U/L (12-78); BILIRUBIN,TOTAL 0.2 MG/DL (0.2-1.0); BLOOD UREA NITROGEN 14 MG/DL (7-18); CALCIUM LEVEL 8.3 MG/DL (8.5-10.1); CARBON DIOXIDE LEVEL 21 MEQ/L (21-32); CHLORIDE LEVEL 111 MEQ/L (98-107); CREATININE FOR GFR 0.55 MG/DL (0.70-1.30); GLOMERULAR FILTRATION RATE > 60.0 (>60); GLUCOSE, FASTING 133 MG/DL (70-100); POTASSIUM SERUM 3.6 MEQ/L (3.5-5.1); SODIUM LEVEL 143 MEQ/L (136-145); TOTAL PROTEIN 5.5 GM/DL (6.4-8.2)
[2020-09-09 15:04] LABS: AMORPHOUS SEDIMENT SMALL (NEGATIVE); APPEARANCE, URINE CLOUDY (CLEAR); BACTERIA, URINE AUTO NEGATIVE (NEGATIVE); BILIRUBIN, URINE AUTO NEGATIVE (NEGATIVE); BLOOD, URINE BLOOD NEGATIVE (NEGATIVE); COLOR, URINE YELLOW (YELLOW); GLUCOSE, URINE (UA) AUTO NEGATIVE (NEGATIVE); KETONE, URINE AUTO NEGATIVE (NEGATIVE); LEUKOCYTE ESTERASE, URINE AUTO NEGATIVE (NEGATIVE); MUCUS, URINE SMALL (NEGATIVE); NITRITE, URINE AUTO NEGATIVE (NEGATIVE); PROTEIN, URINE AUTO NEGATIVE (NEGATIVE); RBC, URINE AUTO 0 /HPF (0-3); SPECIFIC GRAVITY URINE AUTO 1.012 (1.002-1.035); SQUAMOUS EPITHELIAL CELL UR AU 0 /HPF (0-6); UROBILINOGEN, URINE AUTO 0.2 mg/dL (0.0-2.0); WBC, URINE AUTO 1 /HPF (0-3)
== END ==
LOC: M SHH 11:59
PROVIDERS: ATTEND Nurse Practitioner Family
DX: C71.9 Malignant neoplasm of brain, unspecified (principal); N20.0 Calculus of kidney

== ENCOUNTER 2020-09-15 15:45 | Emergency (ER) | payer BC, OTHER ==
[~2020-09-15] VITALS: Ht 170.2 cm; Wt 84.5 kg
[2020-09-15] MEDS ORDERED: ISOVUE-370 76% 100ML VIAL As Ordered ONE (16:39)
[2020-09-15 16:45] LABS: BASO % 0.4 % (0.0-1.0); EOS % 0.1 % (0.0-3.0); HEMATOCRIT 43.5 % (42.0-52.0); HEMOGLOBIN 14.9 g/dl (13.5-17.5); LYMPH # 0.5 10^3/uL (1.5-5.0); LYMPH % 4.9 % (24.0-44.0); MEAN CORPUSCULAR HEMOGLOBIN 34.8 pg (27.0-33.0); MEAN CORPUSCULAR HGB CONC 34.3 g/dl (32.0-36.5); MEAN CORPUSCULAR VOLUME 101.6 fl (80.0-96.0); MONO # 0.5 10^3/uL (0.0-0.8); MONO % 4.5 % (2.0-8.0); NEUTROPHILS # 9.4 10^3/uL (1.5-8.5); NEUTROPHILS % 85.2 % (36.0-66.0); PLATELET COUNT, AUTOMATED 246 10^3/uL (150-450); RED BLOOD COUNT 4.28 10^6/uL (4.30-6.10)
--- NOTE | 2020-09-15 18:01 | REPVR ---
PROCEDURE INFORMATION: Exam: CTA Chest With Contrast Exam date and time: 09/15/2020 5:11 PM Age: 35 years old Clinical indication: Pain; Chest pressure; Additional info: Pleuritic chest pain TECHNIQUE: Imaging protocol: Computed tomographic angiography of the chest with contrast. 3D rendering (Not supervised by radiologist): MIP and/or 3D reconstructed images were created by the technologist. Radiation optimization: All CT scans at this facility use at least one of these dose optimization techniques: automated exposure control; mA and/or kV adjustment per patient size (includes targeted exams where dose is matched to clinical indication); or iterative reconstruction. Contrast material: ISOVUE 370; Contrast volume: 75 ml; Contrast route: INTRAVENOUS (IV); COMPARISON: CR PORTABLE CHEST X-RAY 03/21/2019 3:18 PM FINDINGS: Tubes, catheters and devices: AIX SYSTEM ADMINISTRATOR shunt tubing seen in left anterior chest wall. Pulmonary arteries: There is no evidence of filling defects within the pulmonary arterial circulation to suggest pulmonary embolism. Aorta: The aorta is unremarkable. Lungs: No focal lung consolidation. Pleural spaces: No pleural effusion or pneumothorax. Heart: No cardiomegaly or significant pericardial effusion. Lymph nodes: No mediastinal or hilar lymphadenopathy. Bones/joints: No acute fracture. Soft tissues: Unremarkable. IMPRESSION: No evidence of pulmonary emboli however the more distal vessels are somewhat poorly assessed due to motion. No evidence of pneumonia. Electronically signed by: Rachel Gore On 09/15/2020 18:00:55 PM
[2020-09-15] MEDS ORDERED: POTA1TAB14 PO (18:40)
[2020-09-15 18:53] VITALS: BP 130/89
--- NOTE | 2020-09-16 07:43 | ECGEPIP ---
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
== END 2020-09-15 18:55 | disposition home or self-care (01) ==
LOC: M ED 15:45
DX: R06.02 Shortness of breath (principal); E87.6 Hypokalemia; R00.0 Tachycardia, unspecified; K21.9 Gastro-esophageal reflux disease without esophagitis; R56.9 Unspecified convulsions; Z79.899 Other long term (current) drug therapy
CPT/HCPCS: 71275; 80047; 83735; 84484; 85025; 93005; 99284; Q9967

== ENCOUNTER → 2020-09-22 | Outpatient (REF) | payer BC, OTHER ==
[~2020-09-22] MED LIST changes: +POTA1TAB14 PO
[2020-09-22 14:02] LABS: APPEARANCE, URINE CLEAR (CLEAR); BACTERIA, URINE AUTO NEGATIVE (NEGATIVE); BILIRUBIN, URINE AUTO NEGATIVE (NEGATIVE); BLOOD, URINE BLOOD NEGATIVE (NEGATIVE); COLOR, URINE YELLOW (YELLOW); GLUCOSE, URINE (UA) AUTO NEGATIVE (NEGATIVE); KETONE, URINE AUTO NEGATIVE (NEGATIVE); LEUKOCYTE ESTERASE, URINE AUTO NEGATIVE (NEGATIVE); MUCUS, URINE SMALL (NEGATIVE); NITRITE, URINE AUTO NEGATIVE (NEGATIVE); PROTEIN, URINE AUTO NEGATIVE (NEGATIVE); RBC, URINE AUTO 1 /HPF (0-3); SPECIFIC GRAVITY URINE AUTO 1.019 (1.002-1.035); SQUAMOUS EPITHELIAL CELL UR AU 0 /HPF (0-6); UROBILINOGEN, URINE AUTO 0.2 mg/dL (0.0-2.0); WBC, URINE AUTO 1 /HPF (0-3)
== END ==
LOC: M SMT 12:54
PROVIDERS: ATTEND Nurse Practitioner Women's Health
DX: N20.0 Calculus of kidney (principal)

== ENCOUNTER → 2020-09-23 | Outpatient (CLI) | payer BC, OTHER ==
--- NOTE | 2020-09-23 18:54 | REPVR ---
PROCEDURE INFORMATION: Exam: CT Head Without Contrast Exam date and time: 09/23/2020 6:32 PM Age: 35 years old Clinical indication: Pain; Headache; Additional info: [employer] shunt TECHNIQUE: Imaging protocol: Computed tomography of the head without contrast. Radiation optimization: All CT scans at this facility use at least one of these dose optimization techniques: automated exposure control; mA and/or kV adjustment per patient size (includes targeted exams where dose is matched to clinical indication); or iterative reconstruction. Other technique: STROKE PROTOCOL was implemented. COMPARISON: CT Head without contrast 10/20/2019 10:09 PM FINDINGS: Tubes, catheters and devices: A new left transfrontal ventriculostomy shunt catheter is identified, with the catheter tip within the right lateral ventricle. Mild ventriculomegaly which has slightly increased in size compared to the previous exam. Brain: Mild hyperdensity along the left side of the tentorium, concerning for acute hemorrhage. This is new compared to the previous exam. This measures 3 mm in thickness. Right dural hyperdensity is visualized, which is likely postoperative and stable compared to the prior study. Encephalomalacia/gliosis identified within the anterior right temporal lobe, stable from the prior study. Patchy areas of edema or gliosis are seen within the cerebral white matter bilaterally, with progression. 2-3 mm of midline deviation or shift to the right, stable compared to the prior study. Artifact limits evaluation of the sulma. Minimal hyperdensity involving the left frontal cortex adjacent to the ventriculostomy shunt catheter, likely representing postoperative change/hemorrhage. The white-lo differentiation is otherwise preserved demonstrating no acute territorial type infarct. Cerebral ventricles: See "Tubes, catheters and devices" finding. Paranasal sinuses: Visualized sinuses are unremarkable. No fluid levels. Mastoid air cells: No mastoid effusion. Bones/joints: A right-sided craniotomy is visualized, which is stable. Soft tissues: Unremarkable. IMPRESSION: 1. Mild hyperdensity along the left side of the tentorium, concerning for acute hemorrhage. This is new compared to the previous exam. A follow-up head CT in 12-24 hours is recommended. 2. Patchy areas of edema or gliosis are seen within the cerebral white matter bilaterally, with progression. Otherwise, there is no acute territorial type infarct. If further evaluation is clinically indicated, an MRI of the brain with/without contrast is recommended. 3. Right dural hyperdensity is visualized, which is likely postoperative and stable compared to the prior study. 4. A new left transfrontal ventriculostomy shunt catheter is identified, with the catheter tip within the right lateral ventricle. Mild ventriculomegaly, which has slightly increased in size compared to the previous exam. 5. Minimal hyperdensity involving the left frontal cortex adjacent to the ventriculostomy shunt catheter, likely representing postoperative change/hemorrhage. 6. Encephalomalacia/gliosis identified within the anterior right temporal lobe, stable from the prior study. 7. 2-3 mm of midline deviation or shift to the right, stable compared to the prior study. 8. A right-sided craniotomy is visualized, which is stable. ASSESSMENT: ASPECTS ([place] Stroke Program Early CT Score) is 10. Electronically signed by: Rambo Arthur On 09/23/2020 18:53:10 PM
== END ==
LOC: M RAD 18:23
PROVIDERS: ATTEND Neurological Surgery
DX: R51.9 Headache, unspecified (principal); Z98.2 Presence of cerebrospinal fluid drainage device; R93.0 Abnormal findings on diagnostic imaging of skull and head, not elsewhere classified; G93.89 Other specified disorders of brain; Z98.890 Other specified postprocedural states

== ENCOUNTER → 2020-10-08 | Outpatient (REF) | payer BC, OTHER ==
[2020-10-08 14:06] LABS: APPEARANCE, URINE CLEAR (CLEAR); BACTERIA, URINE AUTO NEGATIVE (NEGATIVE); BILIRUBIN, URINE AUTO NEGATIVE (NEGATIVE); BLOOD, URINE BLOOD NEGATIVE (NEGATIVE); COLOR, URINE YELLOW (YELLOW); GLUCOSE, URINE (UA) AUTO NEGATIVE (NEGATIVE); KETONE, URINE AUTO NEGATIVE (NEGATIVE); LEUKOCYTE ESTERASE, URINE AUTO NEGATIVE (NEGATIVE); MUCUS, URINE SMALL (NEGATIVE); NITRITE, URINE AUTO NEGATIVE (NEGATIVE); PROTEIN, URINE AUTO NEGATIVE (NEGATIVE); RBC, URINE AUTO 0 /HPF (0-3); SPECIFIC GRAVITY URINE AUTO 1.013 (1.002-1.035); SQUAMOUS EPITHELIAL CELL UR AU 0 /HPF (0-6); UROBILINOGEN, URINE AUTO 0.2 mg/dL (0.0-2.0); WBC, URINE AUTO 0 /HPF (0-3)
== END ==
LOC: M SHH 13:36
PROVIDERS: ATTEND Nurse Practitioner Family
DX: R82.998 Other abnormal findings in urine (principal)